=== PATIENT | female | born 1925 | race Caucasian/White ===

== ENCOUNTER → 2017-03-01 | Outpatient (CLI) | payer MEDICARE, MEDICAID, OTHER ==
[2017-02-11 12:21] VITALS: BMI 30.6
[~2017-03-01] MED LIST: ACE325 PO; ACET-1966 PO; ALEN70TA43 PO; ASPI-1471 PO; ASPI-715 PO; ATOR10TA65 PO; AZIT-18 PO; BLOO-1318 MC; CAPT50TA PO; CARB-1 PO; CARB-71 PO; CEP500 PO; CEPH-13 PO; CEPH500C24 PO; CEPH500T7 PO; CHOL100052 PO; CHOL100059 PO; DEXT237L; DOCU-202 PO; ENOX120D5 SQ; FUR80 PO; FURO-47 PO; FURO80TA70 PO; GUAI118L70 PO; IMI25 PO; INSU100I30 SQ; IRON1CAP52 PO; ISOS30TA54 PO; ISOS60TA42 PO; LACT-242 PO; LANC-1149 MC; LANI SC; LANI SQ; LANI SUBQ; LEV125 PO; LEVO-3 PO; LEVO-85 PO; LISI2.5T60 PO; LISI20TA29 PO; LISI5TAB25 PO; LOVA20TA99 PO; MEC25 PO; METF-420 PO; METO100T20 PO; METO50TA19 PO; MINE5OIN OU; MOM PO; NEED-931 MC; NITR0.4T3 SL; NITR50CA35 PO; NITR50CA39 PO; NYST15CR32 TP; ONDA4TAB PO; ONDA8TAB94 PO; OXY5 PO; OXYC-373 PO; OXYC-865 PO; OXYGEN INH; OXYGENHOME INH; PER PO; POLY119P24 PO; POLY17PO25 PO; POTA-23 PO; POTA25TA6 PO; RAN150 PO; RANI150T PO; SIMV10TA98 PO; SPIR25TA78 PO; VIT D; WAR5 PO; WARF4TAB46 PO; [UNRECOGNIZED DRUG - CODE] PO; [UNRECOGNIZED DRUG - CODE] PO
[2017-03-01 15:51] LABS: PLATELET COUNT, AUTOMATED 136 K/uL (150-450)
== END ==
LOC: LAB 15:37
PROVIDERS: ATTEND Emergency Medicine
DX: I50.9 Heart failure, unspecified (principal)
CPT/HCPCS: 36415; 82310; 82374; 82435; 82565; 82947; 83880; 84132; 84295; 84520; 85025

== ENCOUNTER 2017-03-04 19:58 | Inpatient (IN) | payer MEDICARE, MEDICAID, OTHER ==
[~2017-03-04] VITALS: Ht 165.1 cm; Wt 85.3 kg
[~2017-03-04 19:58] MED LIST changes: -LACT237L63 PO
--- NOTE | 2017-03-04 20:13 | ER Report ---
History and Physical Time Seen By MD: 20:12 Hx. of Stated Complaint: PT NOTICED TO HAVE LABORED BREATHING AT ED [facility]. PT COMPLAINS OF PAIN IN LEFT SHOULDER. HPI/ROS CHIEF COMPLAINT: trouble with breathing HISTORY OF PRESENT ILLNESS: This is an 89 year old female. She was sent to the ER from the assisted living [place], [facility]. Nursing staff reported that the patient is having some tachypnea. Reported a respiratory rate of 38. Normal saturations on her 2 liters of oxygen by nasal canula. They also reported decreased breath sounds in the right base of the lungs and left side was clear. They reported that her lasix was recently increased by her primary care provider , Dr. Smith. She has no fever. She has been a little bit confused off and on today, more so than normal for her. On arrival from EMS, she does not think she is short of breath. She does have some left shoulder pain, but historically, she always complains of pain in the left shoulder. She says she has some aches in her legs bilaterally. She denies other pain. She is not nauseated. REVIEW OF SYSTEMS: Otherwise unable to obtain due to regular mental status. Allergies: Coded Allergies: sulfamethoxazole (Verified Allergy, Mild, 03/04/17) trimethoprim (Verified Allergy, Mild, 03/04/17) Home Meds Active Scripts Lisinopril (LISINOPRIL) 5 Mg Tablet, 5 MG PO QDAY, #90 TAB 3 Refills Prov:SARAH SMITH MD 03/01/17 Furosemide (FUROSEMIDE) 40 Mg Tablet, 1 TAB PO BID, #180 TAB 0 Refills 80 mg tab po QAM 40 mg tab po at noon daily. Prov:SARAH SMITH MD 02/25/17 Isosorbide Mononitrate (ISOSORBIDE MONONITRATE ER) 60 Mg Tab.er.24h, 1 TAB PO DAILY, #90 TAB 0 Refills Prov:SARAH SMITH MD 02/23/17 Metoprolol Succinate (METOPROLOL SUCCINATE) 100 Mg Tab.er.24h, 1 TAB PO BID, # 180 TAB 1 Refill Prov:SARAH SMITH MD 02/14/17 Atorvastatin Calcium (ATORVASTATIN CALCIUM) 10 Mg Tablet, 1 TAB PO HS, #90 TAB 4 Refills Prov:SARAH SMITH MD 02/14/17 Levodopa/Carbidopa (CARBIDOPA-LEVODOPA 25-250 TAB) 1 Each Tab, 1 TAB PO TID, # 90 TAB 5 Refills Prov:SARAH SMITH MD 02/14/17 Alendronate Sodium (FOSAMAX) 70 Mg Tablet, 70 MG PO QWK, #12 TAB 4 Refills Prov:SARAH SMITH MD 10/15/16 Levothyroxine Sodium (LEVOTHYROXINE SODIUM) 100 Mcg Tablet, 1 TAB PO QDAY, #90 TAB 3 Refills Prov:SARAH SMITH MD 04/12/16 Aspirin (ASPIR 81) 81 Mg Tablet.dr, 81 MG PO QDAY, #90 TAB 4 Refills Prov:SARAH SMITH MD 03/31/16 Lancets (ONE TOUCH LANCETS) 1 Each Each, 1 EA MC 5XD, #100 12 Refills Test Glucose before Fasting each morning, before meals and HS. Length of need:99 months Prov:SARAH SMITH MD 03/15/16 [place], Insulin Disposable (PEN NEEDLES) 1 Each Dis.needle, 1 EACH MC QAM, #1 12 Refills Prov:SARAH SMITH MD 03/15/16 Blood Sugar Diagnostic (ONE TOUCH ULTRA TEST STRIPS) 1 Each Strip, 1 EACH MC 5XD , #100 STRIP 12 Refills Test Glucose before Fasting each morning, before meals and HS. Length of need:99 months Prov:SARAH SMITH MD 03/15/16 Cholecalciferol (Vitamin D3) (VITAMIN D3) 1,000 Unit Capsule, 1 CAP PO QDAY, # 90 CAPSULE 4 Refills Prov:SARAH SMITH MD 02/27/16 Lactose-Free Food (Ensure High Protein) 237 Ml Liquid, 1 BOTTLE PO TID for 30 Days, ML Prov:SARHA SMITH MD 05/22/15 Reported Medications Mineral Oil/Petrolatum,White (Retaine Pm Eye Ointment) 5 Gm Oint...g., 1 LIZ OU HS 02/10/17 Guaifenesin/Dextromethorphan (Robafen Dm Cgh-Chest Kg Liq) 100 Mg-10 Mg/5 Ml Liquid, 5 ML PO Q4-6H for cough 02/10/17 Polyethylene Glycol 3350 (MIRALAX) 17 Gm Powd.pack, 17 GM PO DAILY, PKT 02/10/17 Insulin Glargine (LANTUS) 100 Unit/Ml Soln, 21 UNIT SUBQ DAILY, ML 02/10/17 Oxygen (OXYGEN) Inha, 2 L INH, L 12/12/14 Magnesium Hydroxide (MILK OF MAGNESIA) 400 Mg/5 Ml Oral.susp, 400 MG PO PRN 10/05/13 Acetaminophen (TYLENOL) 325 Mg Tablet, 325-650 MG PO Q4H Y for PAIN 05/30/13 Reviewed Nurses Notes: Yes Hx Smoking: No Smoking Status: Never Smoker Exposure to Second Hand Smoke?: No Hx Substance Use Disorder: No Hx Alcohol Use: No Constitutional Vital Sign - Last 24 Hours 03/04/17 03/04/17 03/04/17 03/04/17 19:59 20:03 20:28 20:56 Temp 98.3 Pulse 66 60 Resp 36 B/P (MAP) 113/63 (80) 113/63 132/81 (98) Pulse Ox 98 97 O2 Delivery Nasal Cannula 03/04/17 03/04/17 03/04/17 03/04/17 20:58 21:00 21:28 21:30 Pulse 60 60 B/P (MAP) 139/75 (96) 129/67 (87) Pulse Ox 98 98 03/04/17 03/04/17 03/04/17 03/04/17 21:35 21:41 22:00 22:05 Pulse 60 60 B/P (MAP) 131/75 (93) Pulse Ox 99 97 O2 Flow Rate 2.0 03/04/17 03/04/17 03/04/17 03/04/17 22:10 22:30 22:40 23:00 Pulse 60 60 B/P (MAP) 148/66 (93) 146/91 (109) Pulse Ox 98 97 03/04/17 23:10 Pulse 60 Pulse Ox 99 Physical Exam General Appearance: The patient is alert. No acute distress. Eyes: Pupils are equal, round. Reactive to light. No pallor, injection or icterus. ENT: Mucous membranes are moist. Normal oral mucosa. Posterior oropharynx is normal. Normal tympanic membranes and canals other than some cerumen. Neck: Supple and non tender. Respiratory: Lungs are clear to auscultation. Cardiovascular: Regular rate and rhythm. She does have a holosystolic murmur, slight click, no gallops or rubs. Normal capillary refill. Bilateral lower extremity edema. Gastrointestinal: Abdomen is soft and non tender. Nondistended. Normal active bowel sounds. Neurological: Alert, oriented to person. Moving all extremities. Skin: Warm and dry. Musculoskeletal: Extremities are nontender. DIFFERENTIAL DIAGNOSIS: After history and physical exam, differential diagnosis was considered for a patient with tachypnea, but no visible signs of shortness of breath and no chest pain. Look at possible loose including pulmonary embolism , pneumonia, and her chronic heart failure Medical Decision Making Data Points Result Diagram: 03/04/17205403/04/172054 Laboratory Hematology Test 03/04/17 20:55 Red Blood Count 5.67 M/uL (4.17-5.56) Mean Corpuscular Volume 77.3 fL (80.0-96.0) Mean Corpuscular Hemoglobin 24.6 pg (26.0-33.0) Mean Corpuscular Hemoglobin Concent 31.8 g/dL (32.0-36.0) Red Cell Distribution Width 16.1 % (11.5-14.5) Mean Platelet Volume 9.4 fL (7.2-11.1) Neutrophils (%) (Auto) 77.4 % (39.4-72.5) Lymphocytes (%) (Auto) 10.4 % (17.6-49.6) Monocytes (%) (Auto) 9.2 % (4.1-12.4) Eosinophils (%) (Auto) 2.3 % (0.4-6.7) Basophils (%) (Auto) 0.7 % (0.3-1.4) Nucleated RBC Relative Count (auto) 0.0 /100WBC Neutrophils # (Auto) 6.1 K/uL (2.0-7.4) Lymphocytes # (Auto) 0.8 K/uL (1.3-3.6) Monocytes # (Auto) 0.7 K/uL (0.3-1.0) Eosinophils # (Auto) 0.2 K/uL (0.0-0.5) Basophils # (Auto) 0.1 K/uL (0.0-0.1) Nucleated RBC Absolute Count (auto) 0.00 K/uL D-Dimer Quantitative (PE/DVT) 1.73 ug/ml (0-0.50) Sodium Level 135 mmol/L (137-145) Potassium Level 4.3 mmol/L (3.5-5.0) Chloride Level 93 mmol/L (98-107) Carbon Dioxide Level 32 mmol/L (22-31) Blood Urea Nitrogen 45 mg/dl (7-18) Creatinine 1.30 mg/dl (0.52-1.04) Glomerular Filtration Rate Calc 38.6 Random Glucose 154 mg/dl (75-110) Lactate 2.0 mmol/L (0.7-2.1) Calcium Level 8.9 mg/dl (8.4-10.2) Total Bilirubin 0.7 mg/dl (0.2-1.3) Aspartate Amino Transf (AST/SGOT) 26 U/L (0-35) Alanine Aminotransferase (ALT/SGPT) 20 U/L (0-56) Alkaline Phosphatase 59 U/L (0-126) B-Type Natriuretic Peptide 2230 pg/ml (0-100) Total Protein 5.8 gm/dl (6.3-8.2) Albumin 3.0 g/dl (3.5-5.0) Influenza Type A Antigen Negative (NEGATIVE) Influenza Type B Antigen Negative (NEGATIVE) Chemistry Test 03/04/17 20:55 White Blood Count 7.8 k/uL (4.5-11.0) Red Blood Count 5.67 M/uL (4.17-5.56) Hemoglobin 14.0 g/dL (12.0-16.0) Hematocrit 43.9 % (34.0-47.0) Mean Corpuscular Volume 77.3 fL (80.0-96.0) Mean Corpuscular Hemoglobin 24.6 pg (26.0-33.0) Mean Corpuscular Hemoglobin Concent 31.8 g/dL (32.0-36.0) Red Cell Distribution Width 16.1 % (11.5-14.5) Platelet Count 147 K/uL (150-450) Mean Platelet Volume 9.4 fL (7.2-11.1) Neutrophils (%) (Auto) 77.4 % (39.4-72.5) Lymphocytes (%) (Auto) 10.4 % (17.6-49.6) Monocytes (%) (Auto) 9.2 % (4.1-12.4) Eosinophils (%) (Auto) 2.3 % (0.4-6.7) Basophils (%) (Auto) 0.7 % (0.3-1.4) Nucleated RBC Relative Count (auto) 0.0 /100WBC Neutrophils # (Auto) 6.1 K/uL (2.0-7.4) Lymphocytes # (Auto) 0.8 K/uL (1.3-3.6) Monocytes # (Auto) 0.7 K/uL (0.3-1.0) Eosinophils # (Auto) 0.2 K/uL (0.0-0.5) Basophils # (Auto) 0.1 K/uL (0.0-0.1) Nucleated RBC Absolute Count (auto) 0.00 K/uL D-Dimer Quantitative (PE/DVT) 1.73 ug/ml (0-0.50) Glomerular Filtration Rate Calc 38.6 Lactate 2.0 mmol/L (0.7-2.1) Calcium Level 8.9 mg/dl (8.4-10.2) Total Bilirubin 0.7 mg/dl (0.2-1.3) Aspartate Amino Transf (AST/SGOT) 26 U/L (0-35) Alanine Aminotransferase (ALT/SGPT) 20 U/L (0-56) Alkaline Phosphatase 59 U/L (0-126) B-Type Natriuretic Peptide 2230 pg/ml (0-100) Total Protein 5.8 gm/dl (6.3-8.2) Albumin 3.0 g/dl (3.5-5.0) Influenza Type A Antigen Negative (NEGATIVE) Influenza Type B Antigen Negative (NEGATIVE) Coagulation Test 03/04/17 20:55 D-Dimer Quantitative (PE/DVT) 1.73 ug/ml EKG/Imaging Imaging SINGLE AP RADIOGRAPH OF THE CHEST 03/04/2017 8:20 PM. INDICATION: tachypnea COMPARISON: 02/11/2017. FINDINGS: Persistent moderate volume right and small left pleural effusions with bibasilar consolidation/atelectasis, not significantly changed. No pleural effusion or pneumothorax. Heart size is likely unchanged. Unchanged dual- chamber pacer. IMPRESSION: No significant change. Report Dictated By: Efrain Rodríguez MD at 03/04/2017 10:02 PM ED Course/Re-evaluation Clinical Indication for ER IV: IV Access ED Course Labs show a mild increase in her BNP. No leukocytosis. Chronic kidney disease slightly worsened. She has had increased Lasix recently by primary care for edema and fluid retention, but has not seemed to help with no change in weight. D-dimer is elevated, but always so and she does have the renal problem and I think less likely that this is a PE. Starting anticoagulation for her would be problematic at her age and risk factors. Discussed with Dr. Thurston and admitted for what appears to be a heart failure exacerbation. Decision to Disposition Date: Mar 04, 2017 Decision to Disposition Time: 22:25 Depart Departure Latest Vital Signs Vital Signs Date Time Temp Pulse Resp B/P (MAP) Pulse Ox O2 Delivery O2 Flow Rate FiO2 03/04/17 23:10 60 99 03/04/17 23:00 146/91 (109) 03/04/17 21:41 2.0 03/04/17 20:03 98.3 36 Nasal Cannula Impression: Primary Impression: Acute systolic CHF (congestive heart failure) Condition: Condition Unchanged Disposition: Admitted from ER Referrals: SARAH SMITH MD (PCP) ESTEBAN MATTHEW MD Mar 04, 2017 20:13
[2017-03-04 21:10] LABS: PLATELET COUNT, AUTOMATED 147 K/uL (150-450)
--- NOTE | 2017-03-04 22:09 | RADIOLOGY IMAGING REPORT ---
FACILITY: [facility] - [place], [place] PATIENT NAME: Olya Menchaca : 1925 MR: [id number] V: [id number] EXAM DATE: ORDERING PHYSICIAN: ESTEBAN MATTHEW TECHNOLOGIST: Location[place] [facility] [place] Patient: Olya Menchaca : 1925 Visit/Account:[id number] Date of Sevice: 03/04/2017 SINGLE AP RADIOGRAPH OF THE CHEST 03/04/2017 8:20 PM. INDICATION: tachypnea COMPARISON: 02/11/2017. FINDINGS: Persistent moderate volume right and small left pleural effusions with bibasilar consolidation/atelec tasis, not significantly changed. No pleural effusion or pneumothorax. Heart size is likely unchang ed. Unchanged dual-chamber pacer. IMPRESSION: No significant change. Report Dictated By: Efrain Rodríguez MD at 03/04/2017 10:02 PM Report E-Signed By: Efrain Rodríguez MD at 03/04/2017 10:05 PM WSN:[id number]
[2017-03-04 23:46] VITALS: BP 136/114
[2017-03-05] MEDS ORDERED: FUROSEMIDE 40 MG/4 ML VIAL IVP ONE (00:10)
[2017-03-05] MEDS ORDERED: MAGNESIUM HYDROXIDE* 30ML UDCP PO PRN (00:20)
[2017-03-05] MEDS ORDERED: BISACODYL 10 MG SUPP PR PRN (00:20)
--- NOTE | 2017-03-05 00:40 | History & Physical ---
History of Present Illness Chief Complaint Shortness of breath History of Present Illness This patient was brought to the emergency room by assisted living staff secondary to concerns that her breathing was more labored. They also noted increased edema in her legs. She does have chronic heart failure and her diuretics were recently increased. However, she has actually been gaining weight since her last admission. History Problems: (1) CAD (coronary artery disease) (2) Hyperlipidemia Status: Chronic (3) Hypothyroidism Status: Chronic (4) Hypertension, benign Status: Chronic (5) Type II diabetes mellitus Status: Chronic (6) Chronic systolic CHF (congestive heart failure), NYHA class 4 Status: Chronic (7) Paroxysmal atrial fibrillation Status: Chronic (8) Mitral regurgitation Status: Chronic (9) Parkinson disease Status: Chronic (10) Angina pectoris Status: Chronic (11) Non-ST elevation (NSTEMI) myocardial infarction Status: Resolved (12) Pulmonary embolism Status: Chronic (13) Melanoma of left upper arm Status: Resolved (14) Pacemaker Status: Chronic Home Meds Active Scripts Lisinopril (LISINOPRIL) 5 Mg Tablet, 5 MG PO QDAY, #90 TAB 3 Refills Prov:SARAH WILSON MD 03/01/17 Furosemide (FUROSEMIDE) 40 Mg Tablet, 1 TAB PO BID, #180 TAB 0 Refills 80 mg tab po QAM 40 mg tab po at noon daily. Prov:SARAH WILSON MD 02/25/17 Isosorbide Mononitrate (ISOSORBIDE MONONITRATE ER) 60 Mg Tab.er.24h, 1 TAB PO DAILY, #90 TAB 0 Refills Prov:SARAH WILSON MD 02/23/17 Metoprolol Succinate (METOPROLOL SUCCINATE) 100 Mg Tab.er.24h, 1 TAB PO BID, # 180 TAB 1 Refill Prov:SARAH WILSON MD 02/14/17 Atorvastatin Calcium (ATORVASTATIN CALCIUM) 10 Mg Tablet, 1 TAB PO HS, #90 TAB 4 Refills Prov:SARAH WILSON MD 02/14/17 Levodopa/Carbidopa (CARBIDOPA-LEVODOPA 25-250 TAB) 1 Each Tab, 1 TAB PO TID, # 90 TAB 5 Refills Prov:SARAH WILSON MD 02/14/17 Alendronate Sodium (FOSAMAX) 70 Mg Tablet, 70 MG PO QWK, #12 TAB 4 Refills Prov:SARAH WILSON MD 10/15/16 Levothyroxine Sodium (LEVOTHYROXINE SODIUM) 100 Mcg Tablet, 1 TAB PO QDAY, #90 TAB 3 Refills Prov:SARAH WILSON MD 04/12/16 Aspirin (ASPIR 81) 81 Mg Tablet.dr, 81 MG PO QDAY, #90 TAB 4 Refills Prov:SARAH WILSON MD 03/31/16 Lancets (ONE TOUCH LANCETS) 1 Each Each, 1 EA MC 5XD, #100 12 Refills Test Glucose before Fasting each morning, before meals and HS. Length of need:99 months Prov:SARAH WILSON MD 03/15/16 [place], Insulin Disposable (PEN NEEDLES) 1 Each Dis.needle, 1 EACH MC QAM, #1 12 Refills Prov:SARAH WILSON MD 03/15/16 Blood Sugar Diagnostic (ONE TOUCH ULTRA TEST STRIPS) 1 Each Strip, 1 EACH MC 5XD , #100 STRIP 12 Refills Test Glucose before Fasting each morning, before meals and HS. Length of need:99 months Prov:SARAH WILSON MD 03/15/16 Cholecalciferol (Vitamin D3) (VITAMIN D3) 1,000 Unit Capsule, 1 CAP PO QDAY, # 90 CAPSULE 4 Refills Prov:SARAH WILSON MD 02/27/16 Lactose-Free Food (Ensure High Protein) 237 Ml Liquid, 1 BOTTLE PO TID for 30 Days, ML Prov:SARAH WILSON MD 05/22/15 Reported Medications Mineral Oil/Petrolatum,White (Retaine Pm Eye Ointment) 5 Gm Oint...g., 1 LIZ OU HS 02/10/17 Guaifenesin/Dextromethorphan (Robafen Dm Cgh-Chest Kg Liq) 100 Mg-10 Mg/5 Ml Liquid, 5 ML PO Q4-6H for cough 02/10/17 Polyethylene Glycol 3350 (MIRALAX) 17 Gm Powd.pack, 17 GM PO DAILY, PKT 02/10/17 Insulin Glargine (LANTUS) 100 Unit/Ml Soln, 21 UNIT SUBQ DAILY, ML 02/10/17 Oxygen (OXYGEN) Inha, 2 L INH, L 12/12/14 Magnesium Hydroxide (MILK OF MAGNESIA) 400 Mg/5 Ml Oral.susp, 400 MG PO PRN 10/05/13 Acetaminophen (TYLENOL) 325 Mg Tablet, 325-650 MG PO Q4H Y for PAIN 05/30/13 Allergies: Coded Allergies: sulfamethoxazole (Verified Allergy, Mild, 03/04/17) trimethoprim (Verified Allergy, Mild, 03/04/17) Patient History: FH: breast cancer MOTHER, , Age:80 BROTHER OR SISTER FHx: leukemia FATHER, , Age:80 Hx Smoking: No Smoking Status: Never Smoker Exposure to Second Hand Smoke?: No Caffeine/Cups Per Day: NONE Hx Alcohol Use: No Hx Substance Use Disorder: No Review of Systems All Systems Reviewed/Normal: Yes, Except as Noted Respiratory: Shortness of Breath Exam Vital Signs Vital Signs Date Time Temp Pulse Resp B/P (MAP) Pulse Ox O2 Delivery O2 Flow Rate FiO2 03/04/17 23:46 97.6 60 24 136/114 (121) 97 Nasal Cannula 2.0 Neuro: No Gross deficits Eyes: PERRLA Cardiovascular: Regular Rate and Rhythm, Other (JVD present.) Respiratory: Other (Bilateral pleural effusions.) GI: Abd Soft and Non-Tender Extremities: Edema Integumentary: No Cyanosis Medical Decision Making Data Points Result Diagram: 03/04/17205403/04/172054 Item Value Date Time B-Type Natriuretic Peptide 2230 pg/ml H 03/04/172054 EKG / Imaging Imaging Chest x-ray reviewed. Assessment and Plan Problems: (1) Acute systolic CHF (congestive heart failure) Assessment & Plan: She did present with increased shortness of breath and edema. Her diuretics were recently increased, but she has not been responding to this. Her last documented ejection fraction was 29% (01/2017). We will treat her with a dose of IV Lasix this evening. Daily weights have been ordered. She is already on chronic treatment with lisinopril, metoprolol, and oral Lasix. (2) Fecal impaction Status: Acute Assessment & Plan: She is describing symptoms consistent with constipation and impaction. We have started a bowel regime. (3) CAD (coronary artery disease) Assessment & Plan: She is on chronic treatment with aspirin and isosorbide. (4) Hypothyroidism Status: Chronic Assessment & Plan: She is on chronic treatment with Synthroid. (5) Type II diabetes mellitus Status: Chronic Assessment & Plan: She is on chronic treatment with Lantus. We will also cover her with sliding scale level #2. (6) Parkinson disease Status: Chronic Assessment & Plan: She is on chronic treatment with Sinemet. (7) Paroxysmal atrial fibrillation Status: Chronic Assessment & Plan: She is on chronic treatment with aspirin and metoprolol. Copies to: SARAH WILSON MD Venous Thromboembolism Antithrombotics Is Pt On Any Antithrombotics?: No Heart Failure NYHA Class: IV Is Patient on MALLORIE Inhibitor?: No Is Patient on Beta Corbin?: Yes Exam Sepsis Risk: No Definite Risk EMMANUEL DERAS DO Mar 05, 2017 00:39
[2017-03-05 04:02] VITALS: BP 119/57
[2017-03-05] MEDS: LEVOTHYROXINE SOD 0.1 MG TAB PO SCH (05:30)
[2017-03-05 07:36] VITALS: BP 127/72
[2017-03-05] MEDS ORDERED: INSULIN GLARGINE 100 U/ML 3 ML PEN SUBQ SCH (09:00)
[2017-03-05] MEDS ORDERED: FUROSEMIDE 40 MG TAB PO SCH (09:00)
[2017-03-05] MEDS ORDERED: INFLUENZA VIRUS VAC 0.5 ML SYR IM ONLY ONE (09:00)
[2017-03-05] MEDS: ASPIRIN 81 MG ENTERIC COATED PO SCH (09:29)
[2017-03-05] MEDS: METOPROLOL SUCC XL 50 MG TABCR 50 MG TAB.ER.24H PO SCH ×2 (09:29→20:47)
[2017-03-05] MEDS: ISOSORBIDE MONONITR 30MG TABCR PO SCH (09:29)
[2017-03-05] MEDS: INSULIN GLARGINE 100 U/ML 3 ML PEN SUBQ SCH (09:30)
[2017-03-05] MEDS: LISINOPRIL 5 MG TAB PO SCH (09:30)
[2017-03-05] MEDS: DOCUSATE SODIUM 100 MG CAP PO SCH ×2 (09:30→20:47)
[2017-03-05] MEDS: ENOXAPARIN 30 MG/0.3 ML SYR SC SCH (09:30)
[2017-03-05] MEDS: POLYETHYLENE GLYCOL 17 GM PKT PO SCH (09:30)
[2017-03-05 09:35] LABS: PLATELET COUNT, AUTOMATED 142 K/uL (150-450)
[2017-03-05] MEDS: CARBIDOPA/LEVODOPA 25/250 TAB PO SCH ×3 (09:42→20:48)
[2017-03-05 10:53] VITALS: Ht 165.1 cm; Wt 85.3 kg
[2017-03-05 10:55] VITALS: BP 127/62
--- NOTE | 2017-03-05 12:41 | Hospitalist Progress Note ---
Subjective Progress Notes Subjective The patient states she is feeling better this am after receiving IV Lasix last evening. Physical Exam Vital Signs Date Time Temp Pulse Resp B/P (MAP) Pulse Ox O2 Delivery O2 Flow Rate FiO2 03/05/17 10:55 97.8 67 18 127/62 (83) 97 Nasal Cannula 1.0 Intake and Output 03/06/17 07:01 Intake Total 480 ml Output Total 400 ml Balance 80 ml Intake Oral 480 ml Output Urine Total 400 ml General Appearance: Alert, Awake, No Acute Distress, Afebrile Neuro: Other (Short term memory is poor at times.) Eyes: PERRLA Cardiovascular: Regular Rate and Rhythm Respiratory: Other (Very minimal fine crackles, L base.) GI: Soft and Non-Tender Extremities: Warm, Perfused, Other ( Trace to 1+ edema, both LE.) Integumentary: Skin Intact without Lesion / Mass Psych: Appropriate Mood & Affect Result Diagram: 03/05/1792103/05/17921 Assessment and Plan Problems: (1) Acute systolic CHF (congestive heart failure) Assessment & Plan: She did present with increased shortness of breath and edema. Her diuretics were recently increased, but she has not been responding to this. Her last documented ejection fraction was 29% (01/2017). She received a dose of IV Lasix last evening with improvement of her symptoms. Daily weights have been ordered and her weight is down this am. She is already on chronic treatment with lisinopril, metoprolol, and oral Lasix. Will continue her oral Lasix dose today, 80mg po q am and 40mg po in the afternoon. (2) Fecal impaction Status: Acute Assessment & Plan: She is describing symptoms consistent with constipation and impaction. We have started a bowel regimen. (3) CAD (coronary artery disease) Assessment & Plan: She is on chronic treatment with aspirin, metoprolol and isosorbide. (4) Hypothyroidism Status: Chronic Assessment & Plan: She is on chronic treatment with Synthroid. (5) Type II diabetes mellitus Status: Chronic Assessment & Plan: She is on chronic treatment with Lantus. We will also cover her with sliding scale level #2. (6) Parkinson disease Status: Chronic Assessment & Plan: She is on chronic treatment with Sinemet. (7) Paroxysmal atrial fibrillation Status: Chronic Assessment & Plan: She is on chronic treatment with aspirin and metoprolol. Time Spent on Plan of Care: < 30 min Heart Failure NYHA Class: IV Is Patient on MALLORIE Inhibitor?: No Is Patient on Beta Corbin?: Yes Exam Sepsis Risk: No Definite Risk JOVON ROACH MD Mar 05, 2017 12:41
[2017-03-05] MEDS: FUROSEMIDE 40 MG TAB PO SCH (13:54)
[2017-03-05 15:14] VITALS: BP 118/64
[2017-03-05 19:35] VITALS: BP 107/56
[2017-03-05] MEDS: ATORVASTATIN 10 MG TAB PO SCH (20:47)
[2017-03-05 23:07] VITALS: BP 110/60
[2017-03-06 04:57] VITALS: BP 131/62
[2017-03-06 05:56] LABS: PLATELET COUNT, AUTOMATED 126 K/uL (150-450)
[2017-03-06] MEDS: LEVOTHYROXINE SOD 0.1 MG TAB PO SCH (07:25)
[2017-03-06 07:35] VITALS: BP 118/98
[2017-03-06] MEDS ORDERED: FUROSEMIDE 80 MG TAB PO SCH (09:00)
[2017-03-06] MEDS: ENOXAPARIN 30 MG/0.3 ML SYR SC SCH (09:00)
[2017-03-06] MEDS: DOCUSATE SODIUM 100 MG CAP PO SCH ×2 (09:01→21:13)
[2017-03-06] MEDS: ISOSORBIDE MONONITR 30MG TABCR PO SCH (09:01)
[2017-03-06] MEDS: LISINOPRIL 5 MG TAB PO SCH (09:01)
[2017-03-06] MEDS: POLYETHYLENE GLYCOL 17 GM PKT PO SCH (09:01)
[2017-03-06] MEDS: ASPIRIN 81 MG ENTERIC COATED PO SCH (09:01)
[2017-03-06] MEDS: CARBIDOPA/LEVODOPA 25/250 TAB PO SCH ×3 (09:01→21:13)
[2017-03-06] MEDS: INSULIN GLARGINE 100 U/ML 3 ML PEN SUBQ SCH (09:01)
[2017-03-06] MEDS: METOPROLOL SUCC XL 50 MG TABCR 50 MG TAB.ER.24H PO SCH ×2 (09:01→21:14)
[2017-03-06] MEDS: NYSTATIN 100,000 U/GM PWD 15GM TP SCH ×2 (09:39→21:13)
[2017-03-06 11:43] VITALS: BP 119/64
--- NOTE | 2017-03-06 12:36 | Hospitalist Progress Note ---
Subjective Progress Notes Subjective She reports feeling weak. Some dyspnea. Physical Exam Vital Signs Date Time Temp Pulse Resp B/P (MAP) Pulse Ox O2 Delivery O2 Flow Rate FiO2 03/06/17 11:43 97.8 61 26 119/64 (82) 95 Nasal Cannula 2.0 Intake and Output 03/07/17 07:01 Intake Total 250 ml Balance 250 ml Intake Oral 250 ml # Bowel Movements 2 General Appearance: Alert, Awake Cardiovascular: Regular Rate and Rhythm Respiratory: Other (diminished breath sounds at right base) Chest: Other (pacemaker left upper chest) GI: Soft and Non-Tender Extremities: Warm, Perfused Result Diagram: 03/06/17 0540 03/06/17 0540 Assessment and Plan Problems: (1) Acute systolic CHF (congestive heart failure) Assessment & Plan: She did present with increased shortness of breath and edema. Her diuretics were recently increased, but she has not been responding to this. Her last documented ejection fraction was 29% (01/2017). She received a dose of IV Lasix early yesterday with improvement of her symptoms. Daily weights have been ordered and her weight is down. She is already on chronic treatment with lisinopril, metoprolol, and oral Lasix. We transitioned to her oral Lasix dose yesterday (80mg po qam and 40mg po in the afternoon). She hash had a fairly large chronic right-sided pleural effusion. Will re-check CXR. Question if she might improve with a therapeutic thoracentesis. (2) Fecal impaction Status: Acute Assessment & Plan: She has had results with laxatives. We have started a bowel regimen. (3) CAD (coronary artery disease) Assessment & Plan: She is on chronic treatment with aspirin, metoprolol and isosorbide. (4) Hypothyroidism Status: Chronic Assessment & Plan: She is on chronic treatment with Synthroid. TSH was normal at 2.05 on 02/01/17. (5) Type II diabetes mellitus Status: Chronic Assessment & Plan: She is on chronic treatment with Lantus. We will also cover her with sliding scale level #2. (6) Parkinson disease Status: Chronic Assessment & Plan: She is on chronic treatment with Sinemet. (7) Paroxysmal atrial fibrillation Status: Chronic Assessment & Plan: She has ventricular pacemaker and is essentially fully paced. She is on chronic treatment with aspirin and metoprolol. Heart Failure NYHA Class: IV Is Patient on MALLORIE Inhibitor?: No Is Patient on Beta Corbin?: Yes Exam Sepsis Risk: No Definite Risk CHE ROACH MD Mar 06, 2017 12:36
[2017-03-06] MEDS ORDERED: LACT237L63 PO (13:08)
--- NOTE | 2017-03-06 13:15 | RADIOLOGY IMAGING REPORT ---
FACILITY: [facility] - [place] PATIENT NAME: Olya Menchaca : 1925 MR: [id number] V: [id number] EXAM DATE: ORDERING PHYSICIAN: CHE ROACH TECHNOLOGIST: Location: [facility] Patient: Olya Menchaca : 1925 Visit/Account:[id number] Date of Sevice: 03/06/2017 CHEST SINGLE AP Indication: Right pleural effusion, CHF.. Comparison: 03/04/2017. Findings: Cardiac silhouette remains mildly enlarged but unchanged. Left subclavian pacemakers unchanged. Reces s silhouette is within normal limits. The pulmonary vessels are mildly prominent bilaterally. There is persistent small moderate right pleural effusion with associated atelectasis. Minimal left p leural effusion is present. Minimal medial left basal atelectasis. Lungs are otherwise clear without pneumothorax No discrete nodule. Upper abdomen is unremarkable. No acute bony abnormality. IMPRESSION: 1. Persistent mild CHF with small moderate right pleural effusion and minimal left pleural effusion. Bibasilar atelectasis. Report Dictated By: Giovany Rice at 03/06/2017 1:10 PM Report E-Signed By: Giovany Rice at 03/06/2017 1:12 PM WSN:[id number]
[2017-03-06] MEDS: FUROSEMIDE 40 MG TAB PO SCH (13:57)
[2017-03-06] MEDS ORDERED: LIDOCAINE 2% MDV 400MG/20ML VL ONE (14:21)
[2017-03-06 14:42] VITALS: BP 93/58
--- NOTE | 2017-03-06 14:48 | Procedure Note ---
Thoracentesis Procedure Note Reason for Thoracentesis: Pleural Effusion Consent Signed: Yes Thoracentesis Location: Right Lung U/S Guided Thoracentesis: Yes Blood Loss: Minimal Complications: None (none apparent) Anesthesia Used: Other (2% lidocaine 3cc) CC's of Anesthesia: 3 Amount of Fluid: 1975 Fluid Characteristics: Clear (straw colored) Post Procedure Xray Ordered: Yes Lab Analysis Ordered: Yes CHE ROACH MD Mar 06, 2017 14:48
--- NOTE | 2017-03-06 15:18 | RADIOLOGY IMAGING REPORT ---
FACILITY: [facility] - [place] PATIENT NAME: Olya Menchaca : 1925 MR: [id number] V: [id number] EXAM DATE: ORDERING PHYSICIAN: CHE ROACH TECHNOLOGIST: Location: [facility] Patient: Olya Menchaca : 1925 Visit/Account:[id number] Date of Sevice: 03/06/2017 US GUIDANCE FOR THORA/PARA INDICATION: Right pleural effusion. Ultrasound for marking. COMPARISON: None available FINDINGS: Ultrasound evaluation of the right lung does show a prominent pleural effusion. This was marked for thoracentesis. IMPRESSION: Right pleural effusion marked for thoracentesis. Report Dictated By: Giovany Rice at 03/06/2017 3:14 PM Report E-Signed By: Giovany Rice at 03/06/2017 3:15 PM WSN:[id number]
--- NOTE | 2017-03-06 16:05 | RADIOLOGY IMAGING REPORT ---
FACILITY: [facility] [place] PATIENT NAME: Olya Menchaca : 1925 MR: [id number] V: [id number] EXAM DATE: ORDERING PHYSICIAN: CHE ROACH TECHNOLOGIST: [place] [facility] [place] Olya Menchaca : 1925 Visit/Account:[id number] Date of Sevice: 03/06/2017 CHEST SINGLE AP Indication: Right thoracentesis.. Comparison: Exam done earlier in the day. Findings: Cardiac silhouette remains mildly enlarged but unchanged. Mediastinal silhouette and pulmonary vessel s within normal limits. Left subclavian pacemakers in place and unchanged. There is no focal infiltrate or lobar consolidation. No appreciable right pneumothorax. No left pneumothorax. There is minimal residual right pleural flui d and small left pleural fluid visualized with minimal by basilar atelectasis. No discrete nodule. Upper abdomen is unremarkable. No acute bony abnormality. Degenerative change see n in the right shoulder. IMPRESSION: 1. No appreciable right pneumothorax. Small residual right pleural fluid. Small left pleural fluid. Mild bibasilar atelectasis. Report Dictated By: Giovany Rice at 03/06/2017 3:58 PM Report E-Signed By: Giovany Rice at 03/06/2017 4:01 PM WSN:[id number]
[2017-03-06] MEDS: INSULIN HUM LISPRO 100 UN/ML 3 ML VIAL SUBQ PRN (16:41)
[2017-03-06 19:30] VITALS: BP 102/39
[2017-03-06] MEDS: ATORVASTATIN 10 MG TAB PO SCH (21:14)
[2017-03-06 23:19] VITALS: BP 97/56
[2017-03-07 05:14] VITALS: BP 99/61
[2017-03-07] MEDS: LEVOTHYROXINE SOD 0.1 MG TAB PO SCH (05:34)
[2017-03-07 06:02] LABS: PLATELET COUNT, AUTOMATED 146 K/uL (150-450)
[2017-03-07 07:58] VITALS: BP 121/60
[2017-03-07] MEDS: METOPROLOL SUCC XL 50 MG TABCR 50 MG TAB.ER.24H PO SCH ×2 (08:54→20:47)
[2017-03-07] MEDS: ASPIRIN 81 MG ENTERIC COATED PO SCH (08:55)
[2017-03-07] MEDS: DOCUSATE SODIUM 100 MG CAP PO SCH ×2 (08:55→20:46)
[2017-03-07] MEDS: ISOSORBIDE MONONITR 30MG TABCR PO SCH (08:56)
[2017-03-07] MEDS: FUROSEMIDE 40 MG/4 ML VIAL IVP SCH ×2 (08:56→14:11)
[2017-03-07] MEDS: LISINOPRIL 5 MG TAB PO SCH (08:57)
[2017-03-07] MEDS: ENOXAPARIN 30 MG/0.3 ML SYR SC SCH (08:57)
[2017-03-07] MEDS: POLYETHYLENE GLYCOL 17 GM PKT PO SCH (08:57)
[2017-03-07] MEDS: INSULIN GLARGINE 100 U/ML 3 ML PEN SUBQ SCH (08:57)
[2017-03-07] MEDS: NYSTATIN 100,000 U/GM PWD 15GM TP SCH ×2 (08:58→20:47)
[2017-03-07] MEDS: CARBIDOPA/LEVODOPA 25/250 TAB PO SCH ×3 (08:58→20:46)
--- NOTE | 2017-03-07 10:30 | Hospitalist Progress Note ---
Subjective Progress Notes Subjective This patient was admitted for heart failure. She had no acute events overnight. Patient Complains of: Cardiovascular: No: Chest Pain Respiratory: No: Shortness of Breath Physical Exam Vital Signs Date Time Temp Pulse Resp B/P (MAP) Pulse Ox O2 Delivery O2 Flow Rate FiO2 03/07/17 07:58 97.8 66 16 121/60 (80) 96 Nasal Cannula 2.0 Intake and Output 03/08/17 07:01 Intake Total 0 ml Balance 0 ml Intake Oral 0 ml Cardiovascular: Regular Rate and Rhythm Respiratory: Clear to Auscultation Result Diagram: 03/07/1737 03/07/17536 Assessment and Plan Problems: (1) Acute systolic CHF (congestive heart failure) Assessment & Plan: She did present with increased shortness of breath and edema. Her diuretics were recently increased, but she has not been responding to this. Her last documented ejection fraction was 29% (01/2017). She was treated with IV Lasix and her oral Lasix was restarted. Her weight has not improved to baseline. We will place her back on scheduled IV Lasix. She is already on chronic treatment with lisinopril, metoprolol, and oral Lasix. She did have a thoracentesis performed yesterday. (2) Fecal impaction Status: Acute Assessment & Plan: She has had results with laxatives. She is on a bowel regimen. (3) CAD (coronary artery disease) Assessment & Plan: She is on chronic treatment with aspirin, metoprolol and isosorbide. (4) Hypothyroidism Status: Chronic Assessment & Plan: She is on chronic treatment with Synthroid. (5) Type II diabetes mellitus Status: Chronic Assessment & Plan: She is on chronic treatment with Lantus. We also are covering her with sliding scale level #2. (6) Parkinson disease Status: Chronic Assessment & Plan: She is on chronic treatment with Sinemet. (7) Paroxysmal atrial fibrillation Status: Chronic Assessment & Plan: She has ventricular pacemaker and is essentially fully paced. She is on chronic treatment with aspirin and metoprolol. Heart Failure NYHA Class: IV Is Patient on MALLORIE Inhibitor?: No Is Patient on Beta Corbin?: Yes Exam Sepsis Risk: No Definite Risk EMMANUEL DERAS DO Mar 07, 2017 10:30
--- NOTE | 2017-03-07 14:14 | Medical Nutrition Therapy ---
Nutritional Education Nutrition Education Topic: Low Na Diet, Congested Heart Failure Learning Barriers: Cognitive Learning Readiness: Little Interest Teaching Methods: Discussion, Handout Response to Teaching: Verbalize understanding, Reinforcement needed, Unable to comprehend Teaching Recipient: Patient Nutrition Counseling: Provided pt with CHF education. I discussed limiting sodium and fluids. Pt was confused and unable to understand most of the handout. I tried to simplify the information and stressed not using a salt shaker. Pt understood to not add additional salt to foods. Pt came from a senior care care center where she can have help making food choices. Nutrition Monitoring & Eval RD Patient Assessment Time: [address] Assessment Type: RD Education Patient Nutrition Acuity: 3-Mild Follow Up Date: Mar 09, 2017 Nutritional Comment: Assisted living resident admitted with CHF. Class I obesity with BMI of 31.4. Wt status to change as edmea resolves. Alb 3.0, BNP 2230, Glu 154. T2DM treated in hospital with Lantus 15 q day, Lispro SSI. Receiving Diabetic diet with no reports of intake. Provided 15 minutes of CHF education. WOLF ALONSO Mar 07, 2017 11:53
[2017-03-07] MEDS: INSULIN HUM LISPRO 100 UN/ML 3 ML VIAL SUBQ PRN ×2 (17:07→20:47)
[2017-03-07 18:57] VITALS: BP 108/50
[2017-03-07] MEDS: ATORVASTATIN 10 MG TAB PO SCH (20:46)
[2017-03-08 00:16] VITALS: BP 95/55
[2017-03-08] MEDS: LEVOTHYROXINE SOD 0.1 MG TAB PO SCH (06:15)
[2017-03-08 08:22] VITALS: BP 145/69
[2017-03-08] MEDS: POLYETHYLENE GLYCOL 17 GM PKT PO SCH (08:26)
[2017-03-08] MEDS: DOCUSATE SODIUM 100 MG CAP PO SCH ×2 (08:26→21:02)
[2017-03-08] MEDS: LISINOPRIL 5 MG TAB PO SCH (08:26)
[2017-03-08] MEDS: FUROSEMIDE 40 MG/4 ML VIAL IVP SCH ×2 (08:26→14:22)
[2017-03-08] MEDS: CARBIDOPA/LEVODOPA 25/250 TAB PO SCH ×3 (08:26→21:02)
[2017-03-08] MEDS: METOPROLOL SUCC XL 50 MG TABCR 50 MG TAB.ER.24H PO SCH ×2 (08:26→21:02)
[2017-03-08] MEDS: ENOXAPARIN 30 MG/0.3 ML SYR SC SCH (08:26)
[2017-03-08] MEDS: ASPIRIN 81 MG ENTERIC COATED PO SCH (08:26)
[2017-03-08] MEDS: ISOSORBIDE MONONITR 30MG TABCR PO SCH (08:26)
[2017-03-08] MEDS: INSULIN GLARGINE 100 U/ML 3 ML PEN SUBQ SCH (08:27)
[2017-03-08] MEDS: NYSTATIN 100,000 U/GM PWD 15GM TP SCH ×2 (09:54→21:11)
--- NOTE | 2017-03-08 11:03 | Hospitalist Progress Note ---
Subjective Progress Notes Subjective The patient reports that she feels like she requires too much help to go back to [facility] at this time. Staff reports that she is requiring a lot of assistance with ambulation. The patient does not report any SOB. Physical Exam Vital Signs Date Time Temp Pulse Resp B/P (MAP) Pulse Ox O2 Delivery O2 Flow Rate FiO2 03/08/17 09:57 92 Nasal Cannula 2.0 03/08/17 08:22 97.4 62 24 145/69 (94) Intake and Output 03/09/17 07:00 Intake Total 240 ml Balance 240 ml Intake Oral 240 ml # Bowel Movements 1 General Appearance: Alert, Awake, No Acute Distress Cardiovascular: Regular Rate and Rhythm Respiratory: Clear to Auscultation (Doesn't move air well to the lower quarter of the lungs) Result Diagram: 03/07/17 0537 03/08/17 0545 Assessment and Plan Problems: (1) Acute systolic CHF (congestive heart failure) Assessment & Plan: She did present with increased shortness of breath and edema. Her diuretics were recently increased, but she has not been responding to this. Her last documented ejection fraction was 29% (01/2017). She had 1975cc removed from the right chest by thoracentesis on 03/06. She was treated with IV Lasix and her oral Lasix was restarted. Her weight was not improving. We placed back on scheduled IV Lasix on 03/07. She is already on chronic treatment with lisinopril, metoprolol, and oral Lasix. She is working with OT/ PT. SW involved with disposition. (2) Fecal impaction Status: Acute Assessment & Plan: She has had results with laxatives. She is on a bowel regimen. (3) CAD (coronary artery disease) Assessment & Plan: She is on chronic treatment with aspirin, metoprolol and isosorbide. (4) Hypothyroidism Status: Chronic Assessment & Plan: She is on chronic treatment with Synthroid. (5) Type II diabetes mellitus Status: Chronic Assessment & Plan: She is on chronic treatment with Lantus. We also are covering her with sliding scale level #2. (6) Parkinson disease Status: Chronic Assessment & Plan: She is on chronic treatment with Sinemet. (7) Paroxysmal atrial fibrillation Status: Chronic Assessment & Plan: She has ventricular pacemaker and is essentially fully paced. She is on chronic treatment with aspirin and metoprolol. Heart Failure NYHA Class: IV Is Patient on MALLORIE Inhibitor?: No Is Patient on Beta Corbin?: Yes Exam Sepsis Risk: No Definite Risk LAI GOFF MD Mar 08, 2017 11:03
[2017-03-08 16:42] VITALS: BP 113/53
[2017-03-08 18:40] VITALS: BP 108/62
[2017-03-08] MEDS: ATORVASTATIN 10 MG TAB PO SCH (21:02)
[2017-03-08] MEDS: INSULIN HUM LISPRO 100 UN/ML 3 ML VIAL SUBQ PRN (21:09)
[2017-03-09 03:38] VITALS: BP 106/55
[2017-03-09] MEDS: LEVOTHYROXINE SOD 0.1 MG TAB PO SCH (05:59)
[2017-03-09 07:16] VITALS: BP 114/78
[2017-03-09] MEDS: POLYETHYLENE GLYCOL 17 GM PKT PO SCH (08:48)
[2017-03-09] MEDS: ENOXAPARIN 30 MG/0.3 ML SYR SC SCH (08:49)
[2017-03-09] MEDS: DOCUSATE SODIUM 100 MG CAP PO SCH (08:50)
[2017-03-09] MEDS: ISOSORBIDE MONONITR 30MG TABCR PO SCH (08:50)
[2017-03-09] MEDS: METOPROLOL SUCC XL 50 MG TABCR 50 MG TAB.ER.24H PO SCH (08:51)
[2017-03-09] MEDS: CARBIDOPA/LEVODOPA 25/250 TAB PO SCH ×2 (08:52→13:51)
[2017-03-09] MEDS: ASPIRIN 81 MG ENTERIC COATED PO SCH (08:52)
[2017-03-09] MEDS: LISINOPRIL 5 MG TAB PO SCH (08:52)
[2017-03-09] MEDS: INSULIN GLARGINE 100 U/ML 3 ML PEN SUBQ SCH (08:54)
[2017-03-09] MEDS: NYSTATIN 100,000 U/GM PWD 15GM TP SCH (08:54)
[2017-03-09] MEDS: FUROSEMIDE 40 MG/4 ML VIAL IVP SCH (08:55)
--- NOTE | 2017-03-09 11:27 | RADIOLOGY IMAGING REPORT ---
[place] [facility] [place] NAME: Olya Menchaca : 1925 MR: [id number] V: [id number] EXAM DATE: ORDERING PHYSICIAN: CHE ROACH TECHNOLOGIST: Location: [facility] Patient: Olya Menchaca : 1925 Visit/Account:[id number] Date of Sevice: 03/09/2017 Exam type: CHEST SINGLE AP History: CHF/right pleural effusion Comparison: March 06, 2017. Findings: There is been an increase in the small right pleural effusion.. Small left pleural effusion appears relatively unchanged. Mild interstitial prominence noted throughout the lungs in addition to cardiom egaly which may be secondary to pulmonary edema as the clinical history suggests. There suggestion o f a left basilar airspace consolidation consistent with infiltrate and/or atelectasis. Dual lead car diac pacemaker again noted IMPRESSION: 1. Slight increase in small right pleural effusion Small left pleural effusion unchanged Mild interstitial prominence of the lungs in addition to cardiomegaly which may be secondary to pulmo nary edema as the clinical history suggests Suggestion of left basilar airspace consolidation consistent with infiltrate and/or atelectasis. Report Dictated By: Estefany Mane MD at 03/09/2017 11:20 AM Report E-Signed By: Estefany Mane MD at 03/09/2017 11:22 AM WSN:[email or web address]
[2017-03-09] MEDS: INSULIN HUM LISPRO 100 UN/ML 3 ML VIAL SUBQ PRN (11:59)
--- NOTE | 2017-03-09 15:04 | Hospitalist Depart ---
Discharge Summary Reason for Hosp/Final Diag: (1) Acute systolic CHF (congestive heart failure) Hospital Course & Plan: She did present with increased shortness of breath and edema. Her diuretics were recently increased, but she had not been responding to this. Her last documented ejection fraction was 29% (01/2017). She had a persistent right-sided pleural effusion and had 1975cc removed from the right chest by thoracentesis on 03/06/17. Evaluation of this fluid showed it to be transudative and most likely secondary to her heart failure. She was initially treated with IV Lasix and her oral Lasix was subsequently restarted. Her weight was not improving. We placed her back on scheduled IV Lasix on 03/07/17. She has already been on chronic treatment with lisinopril and metoprolol as well as the oral Lasix. She was working with OT/PT. SW was involved with her disposition. It was felt she may be best served with ongoing rehabilitative therapy. Arrangements were made for transfer to [facility]. (2) Fecal impaction Status: Acute Hospital Course & Plan: She has had results with laxatives. She is on a bowel regimen. (3) CAD (coronary artery disease) Hospital Course & Plan: She is on chronic treatment with aspirin, metoprolol and isosorbide. (4) Hypothyroidism Status: Chronic Hospital Course & Plan: She is on chronic treatment with Synthroid. (5) Type II diabetes mellitus Status: Chronic Hospital Course & Plan: She is on chronic treatment with Lantus. We also are covering her with sliding scale level #2. (6) Parkinson disease Status: Chronic Hospital Course & Plan: She is on chronic treatment with Sinemet. (7) Paroxysmal atrial fibrillation Status: Chronic Hospital Course & Plan: She has ventricular pacemaker and is essentially fully paced. She is on chronic treatment with aspirin and metoprolol. Departure Weight (Pounds): 188 Weight (Ounces): 2.0 Result Diagram: 03/07/1753603/08/17544 Item Value Date Time White Blood Count 7.8 k/uL 03/04/172054 Hematocrit 43.9 % 03/04/172054 Hemoglobin 14.0 g/dL 03/04/172054 Platelet Count 147 K/uL L 03/04/172054 D-Dimer Quantitative (PE/DVT) 1.73 ug/ml H 1/5/18 2055 Sodium Level 135 mmol/L L 03/04/172054 Potassium Level 4.3 mmol/L 03/04/172054 Chloride Level 93 mmol/L L 03/04/172054 Carbon Dioxide Level 32 mmol/L H 03/04/172054 Blood Urea Nitrogen 45 mg/dl H 03/04/172054 Creatinine 1.30 mg/dl H 03/04/172054 Glomerular Filtration Rate Calc 38.6 03/04/172054 Random Glucose 154 mg/dl H 03/04/172054 Lactate 2.0 mmol/L 03/04/172054 Calcium Level 8.9 mg/dl 03/04/172054 Total Bilirubin 0.7 mg/dl 03/04/172054 Aspartate Amino Transf (AST/SGOT) 26 U/L 03/04/172054 Alanine Aminotransferase (ALT/SGPT) 20 U/L 03/04/172054 Alkaline Phosphatase 59 U/L 03/04/172054 Total Protein 5.8 gm/dl L 03/04/172054 Albumin 3.0 g/dl L 03/04/172054 B-Type Natriuretic Peptide 2230 pg/ml H 03/04/172054 Body Fluid Glucose 125 mg/dL 03/06/17 144 Body Fluid Total Protein < 2.0 G/dl 03/06/17 1445 Body Fluid Monocytes 8 % 03/06/17 144 Body Fluid Lymphocytes 36 % 03/06/17 1445 Body Fluid Neutrophils 56 % 03/06/17 1445 Body Fluid RBC 304 03/06/17 1445 Body Fluid WBC 117 03/06/17 1445 Body Fluid pH 7.0 pH 03/06/17 1445 Body Fluid Type right pleural 03/06/17 1445 Influenza Type A Antigen Negative 03/04/172054 Influenza Type B Antigen Negative 03/04/172054 [facility] *LIVE* [address] [place] [address] CATIE BHATIA M.D., DIRECTOR OF LABORATORY SERVICES LUIS LIMA M.D., PATHOLOGIST RUN DATE: 03/09/17 Specimen Inquiry Report PAGE 1 RUN TIME: 814 PATIENT: PHILL MENCHACA ACCT: [id number] LOC: [facility] U : [id number] AGE/SX: 89/F ROOM: [facility] REG : 03/04/[address]: EMAMNUEL DERAS DO : 1925 BED: 271 DIS : STATUS: ADM IN TLOC: SPEC #: [id number] PAMELA: 03/06/17 STATUS: COMP REQ #: [id number] RECD: 03/06/[address]: CHE ROACH MD SOURCE: PLEURAL FL ENTR: 03/06/[address]: EMMANUEL DERAS DO SPDESC: SARAH WILSON MD ORDERED: CULT BF/GS COMMENTS: Has specimen been collected/obtained? Y Specimen Description: right Procedure Result Verified GRAM STAIN Final 03/06/17-1729 NO ORGANISMS SEEN NO WHITE BLOOD CELLS CULTURE BODY FLUID Final 03/09/17-813 No growth after 3 days Imaging PATIENT NAME: Phill Menchaca : 1925 MR: [id number] V: [id number] EXAM DATE: ORDERING PHYSICIAN: ESTEBAN MATTHEW TECHNOLOGIST: Location: [facility] [place] Patient: Phill Menchaca : 1925 Visit/Account:[id number] Date of Sevice: 03/04/2017 SINGLE AP RADIOGRAPH OF THE CHEST 03/04/2017 8:20 PM. INDICATION: tachypnea COMPARISON: 02/11/2017. FINDINGS: Persistent moderate volume right and small left pleural effusions with bibasilar consolidation/atelectasis, not significantly changed. No pleural effusion or pneumothorax. Heart size is likely unchanged. Unchanged dual- chamber pacer. IMPRESSION: No significant change. Report Dictated By: Efrain Rodríguez MD at 03/04/2017 10:02 PM Report E-Signed By: Efrain Rodríguez MD at 03/04/2017 10:05 PM WSN:[id number] PATIENT NAME: Phill Menchaca : 1925 MR: [id number] V: [id number] EXAM DATE: [id number] ORDERING PHYSICIAN: CHE ROACH TECHNOLOGIST: Location: [facility] [place] Patient: Phill Menchaca : 1925 Visit/Account:[id number] Date of Sevice: 03/06/2017 CHEST SINGLE AP Indication: Right thoracentesis.. Comparison: Exam done earlier in the day. Findings: Cardiac silhouette remains mildly enlarged but unchanged. Mediastinal silhouette and pulmonary vessels within normal limits. Left subclavian pacemakers in place and unchanged. There is no focal infiltrate or lobar consolidation. No appreciable right pneumothorax. No left pneumothorax. There is minimal residual right pleural fluid and small left pleural fluid visualized with minimal by basilar atelectasis. No discrete nodule. Upper abdomen is unremarkable. No acute bony abnormality. Degenerative change seen in the right shoulder. IMPRESSION: 1. No appreciable right pneumothorax. Small residual right pleural fluid. Small left pleural fluid. Mild bibasilar atelectasis. Report Dictated By: Giovany Rice at 03/06/2017 3:58 PM Report E-Signed By: Giovany Rice at 03/06/2017 4:01 PM WSN:[id number] PATIENT NAME: Phill Menchaca : 1925 MR: [id number] V: [id number] EXAM DATE: ORDERING PHYSICIAN: CHE ROACH TECHNOLOGIST: Location: [facility] [place] Patient: Phill Menchaca : 1925 Visit/Account:[id number] Date of Sevice: 03/09/2017 Exam type: CHEST SINGLE AP History: CHF/right pleural effusion Comparison: March 06, 2017. Findings: There is been an increase in the small right pleural effusion.. Small left pleural effusion appears relatively unchanged. Mild interstitial prominence noted throughout the lungs in addition to cardiomegaly which may be secondary to pulmonary edema as the clinical history suggests. There suggestion of a left basilar airspace consolidation consistent with infiltrate and/or atelectasis. Dual lead cardiac pacemaker again noted IMPRESSION: 1. Slight increase in small right pleural effusion Small left pleural effusion unchanged Mild interstitial prominence of the lungs in addition to cardiomegaly which may be secondary to pulmonary edema as the clinical history suggests Suggestion of left basilar airspace consolidation consistent with infiltrate and /or atelectasis. Report Dictated By: Estefnay Mane MD at 03/09/2017 11:20 AM Report E-Signed By: Estefany Mane MD at 03/09/2017 11:22 AM WSN:[email or web address] Condition: Improved Discharge: [facility] E[facility] PT/OT Follow Up For: PT For Strengthening, OT For ADL's Time Spent: > 30 min Discharge Instructions Home Meds Active Scripts Lisinopril (LISINOPRIL) 5 Mg Tablet, 5 MG PO QDAY, #90 TAB 3 Refills Prov:SARAH WILSON MD 03/01/17 Furosemide (FUROSEMIDE) 40 Mg Tablet, 1 TAB PO BID, #180 TAB 0 Refills 80 mg tab po QAM 40 mg tab po at noon daily. Prov:SARAH WILSON MD 02/25/17 Isosorbide Mononitrate (ISOSORBIDE MONONITRATE ER) 60 Mg Tab.er.24h, 1 TAB PO DAILY, #90 TAB 0 Refills Prov:SARAH WILSON MD 02/23/17 Metoprolol Succinate (METOPROLOL SUCCINATE) 100 Mg Tab.er.24h, 1 TAB PO BID, # 180 TAB 1 Refill Prov:SARAH WILSON MD 02/14/17 Atorvastatin Calcium (ATORVASTATIN CALCIUM) 10 Mg Tablet, 1 TAB PO HS, #90 TAB 4 Refills Prov:SARAH WILSON MD 02/14/17 Levodopa/Carbidopa (CARBIDOPA-LEVODOPA 25-250 TAB) 1 Each Tab, 1 TAB PO TID, # 90 TAB 5 Refills Prov:SARAH WILSON MD 02/14/17 Alendronate Sodium (FOSAMAX) 70 Mg Tablet, 70 MG PO QWK, #12 TAB 4 Refills Prov:SARAH WILSON MD 10/15/16 Levothyroxine Sodium (LEVOTHYROXINE SODIUM) 100 Mcg Tablet, 1 TAB PO QDAY, #90 TAB 3 Refills Prov:SARAH WILSON MD 04/12/16 Aspirin (ASPIR 81) 81 Mg Tablet.dr, 81 MG PO QDAY, #90 TAB 4 Refills Prov:SARAH WILSON MD 03/31/16 Lancets (ONE TOUCH LANCETS) 1 Each Each, 1 EA MC 5XD, #100 12 Refills Test Glucose before Fasting each morning, before meals and HS. Length of need:99 months Prov:SARAH WILSON MD 03/15/16 [place], Insulin Disposable (PEN NEEDLES) 1 Each Dis.needle, 1 EACH MC QAM, #1 12 Refills Prov:SARAH WILSON MD 03/15/16 Blood Sugar Diagnostic (ONE TOUCH ULTRA TEST STRIPS) 1 Each Strip, 1 EACH MC 5XD , #100 STRIP 12 Refills Test Glucose before Fasting each morning, before meals and HS. Length of need:99 months Prov:SARAH WILSON MD 03/15/16 Cholecalciferol (Vitamin D3) (VITAMIN D3) 1,000 Unit Capsule, 1 CAP PO QDAY, # 90 CAPSULE 4 Refills Prov:SARAH WILSON MD 02/27/16 Reported Medications Lactose-Reduced Food (Ensure Original) 237 Ml Liquid, 1 BOTTLE PO TID 03/06/17 Mineral Oil/Petrolatum,White (Retaine Pm Eye Ointment) 5 Gm Oint...g., 1 LIZ OU HS 02/10/17 Polyethylene Glycol 3350 (MIRALAX) 17 Gm Powd.pack, 17 GM PO DAILY, PKT 02/10/17 Insulin Glargine (LANTUS) 100 Unit/Ml Soln, 21 UNIT SUBQ DAILY, ML 02/10/17 Oxygen (OXYGEN) Inha, 2 L INH, L 12/12/14 Magnesium Hydroxide (MILK OF MAGNESIA) 400 Mg/5 Ml Oral.susp, 400 MG PO PRN 10/05/13 Acetaminophen (TYLENOL) 325 Mg Tablet, 325-650 MG PO Q4H Y for PAIN 05/30/13 Discontinued Reported Medications Guaifenesin/Dextromethorphan (Robafen Dm Cgh-Chest Kg Liq) 100 Mg-10 Mg/5 Ml Liquid, 5 ML PO Q4-6H for cough 02/10/17 Discontinued Scripts Lactose-Free Food (Ensure High Protein) 237 Ml Liquid, 1 BOTTLE PO TID for 30 Days, ML Prov:SARAH WILSON MD 05/22/15 Diet: Diabetic, No Added Salt (SHRAVAN) Activity: As Tolerated, With Walker Special Instructions: She will be followed by the Hospitalist Service while on ECF. Copies to: SARAH WILSON MD Venous Thromboembolism Antithrombotics Is Pt On Any Antithrombotics?: No Heart Failure NYHA Class: IV Is Patient on MALLORIE Inhibitor?: No Is Patient on Beta Corbin?: Yes CHE ROACH MD Mar 09, 2017 15:04
--- NOTE | 2017-03-09 16:13 | Medical Nutrition Therapy ---
Nutrition Anthropometrics Height (Inches): 65.00 Height (Calculated Centimeters: 165.754078 Weight (Pounds): 188 Weight (Calculated Kilograms): 85.332 BMI Calculated: 31.28 Shekhar Nutrition Score: Probably Inadequate Shekhar Nutrition Risk Score: 15 Dietary Referral Nutrition Risk Factors: Diff. Swallowing Nutrition Risk Comment: Physical Findings Physical Appearance: Obese BMI 30-39 Skin Appearance Skin Appearance: Edema Edema Location Modifier: Both Edema Location: Lower Extremity Type of Edema: Degree of Edema: 3+ Gastrointestinal Symptoms GI Symtoms: Tube Present: Bowel Sounds: Recent Bowel Pattern: Constipated Stool Characteristics: Nutritional Diagnosis Nutritional Risk Acuity 2: CHF w/Complication Nutritional Risk Acuity 3: Alzheimer's Past Medical History: CHF, type 2 diabetes, HTN, hypothyroid, afib, parkinson's, CKD stage 3, CAD Nutritional Acuity: 2-Moderate Nutrition Diagnosis: Decreased Nutrient Needs Nutrition Etiology: Physiological Causes Nutrition Problem/Etiology/Sym: Decreased fluid/Na needs r/t CHF complication AEB 3+ pitting lower extremity edema Energy Requirement: 1665 ([place] St Jeor) Protein Requirement: 85 (1 g/kg) Fluid Requirement: 2125 (25 ml/kg) Nutrition Intervention: Cont diet as ordered, Encourage intake Drug: Diuretics Nutrition Monitoring & Eval Nutrition Goals: Eat 75-100% Meal Nutrition Follow-Up: Good Intake RD Patient Assessment Time: [address] Assessment Type: RD Re-Assessment Patient Nutrition Acuity: 2-Moderate Follow Up Date: Mar 09, 2017 Nutritional Comment: Assisted living resident admitted with CHF. Class I obesity with BMI of 31.4. Wt status to change as edmea resolves. Alb 3.0, BNP 2230, Glu 154. T2DM treated in hospital with Lantus 15 q day, Lispro SSI. Receiving Diabetic diet with no reports of intake. Provided 15 minutes of CHF education. 03/09 Pt on ADA diet averaging 55% intake of regular portions. Pt continues on K+ depleting lasix. K+ WNL. Other notable labs include Na 131, BUN 44, Cr 1.2, and Glu 99. Pt continues on daily wt monitoring. She has lost 6 pounds in 3 days most likely due to the diuretic. Pt still has 3+ pitting lower extremity edema. Will continue to monitor wt, intake, labs, etc. WOLF ALONSO Mar 09, 2017 11:01
== END 2017-03-09 14:05 | DRG 291 ==
LOC: ER 20:05 → MED 23:10
PROVIDERS: ADMIT Family Medicine; ATTEND Family Medicine
PROC: 0W993ZX Drainage of Right Pleural Cavity, Percutaneous Approach, Diagnostic (ICD-10-PCS; principal; 2017-03-07)
DX: I13.0 Hypertensive heart and chronic kidney disease with heart failure and stage 1 through stage 4 chronic kidney disease, or unspecified chronic kidney disease (principal); I50.23 Acute on chronic systolic (congestive) heart failure; J91.8 Pleural effusion in other conditions classified elsewhere; K56.41 Fecal impaction; I25.10 Atherosclerotic heart disease of native coronary artery without angina pectoris; E11.22 Type 2 diabetes mellitus with diabetic chronic kidney disease; N18.9 Chronic kidney disease, unspecified; E03.9 Hypothyroidism, unspecified; I48.0 Paroxysmal atrial fibrillation; G20 Parkinson's disease; G47.30 Sleep apnea, unspecified; R06.82 Tachypnea, not elsewhere classified; I34.0 Nonrheumatic mitral (valve) insufficiency; I25.2 Old myocardial infarction; Z95.0 Presence of cardiac pacemaker; Z85.820 Personal history of malignant melanoma of skin; Z90.710 Acquired absence of both cervix and uterus; Z90.49 Acquired absence of other specified parts of digestive tract; Z88.8 Allergy status to other drugs, medicaments and biological substances; Z79.4 Long term (current) use of insulin
CPT/HCPCS: 36415; 36416; 71045; 82040; 82150; 82247; 82310; 82374; 82435; 82565; 82945; 82947; 82948; 83605; 83880; 83986; 84075; 84132; 84155; 84157; 84295; 84450; 84460; 84520; 85025; 85379; 87071; 87205; 87502; 88104; 88305; 89050; 97161; 97165; 99285; A7048; J1650; J1815; J1940; J2001

== ENCOUNTER → 2017-03-04 | Outpatient (CLI) | payer MEDICARE, MEDICAID, OTHER ==
[~2017-03-04] MED LIST changes: +LACT237L63 PO
[2017-03-05 10:53] VITALS: BMI 31.3
== END ==
LOC: AMB 19:40
PROVIDERS: ATTEND Nurse Practitioner
DX: R06.00 Dyspnea, unspecified (principal); R09.02 Hypoxemia
CPT/HCPCS: A0425; A0429

== ENCOUNTER 2017-03-09 14:05 | Inpatient (IN) | payer MEDICARE, MEDICAID, OTHER ==
[2017-03-05 10:53] VITALS: Ht 165.1 cm; Wt 83.9 kg
[~2017-03-09] VITALS: Ht 165.1 cm; Wt 83.9 kg
[~2017-03-09 14:05] MED LIST changes: +LACT237L63 PO
[2017-03-09] MEDS ORDERED: MAGNESIUM HYDROXIDE* 30ML UDCP PO PRN (14:27)
[2017-03-09] MEDS ORDERED: LEVOTHYROXINE SOD 0.1 MG TAB PO SCH (14:27)
[2017-03-09] MEDS ORDERED: BISACODYL 10 MG SUPP PR PRN (14:27)
[2017-03-09] MEDS ORDERED: FUROSEMIDE 40 MG TAB PO ONE (14:35)
[2017-03-09] MEDS ORDERED: PNEUMOCOC VAC POLY 25MCG/0.5ML IM ONLY ONE (14:40)
[2017-03-09] MEDS ORDERED: INFLUENZA VIRUS VAC 0.5 ML SYR IM ONLY ONE (14:40)
[2017-03-09 14:45] VITALS: BP 116/56
--- NOTE | 2017-03-09 15:06 | ECF H&P BLANK ---
[facility] H&P UPDATE History of Present Illness Chief Complaint Shortness of breath History of Present Illness This patient was brought to the emergency room by assisted living staff secondary to concerns that her breathing was more labored. They also noted increased edema in her legs. She does have chronic heart failure and her diuretics were recently increased. However, she has actually been gaining weight since her last admission. History Problems: (1) CAD (coronary artery disease) (2) Hyperlipidemia Status: Chronic (3) Hypothyroidism Status: Chronic (4) Hypertension, benign Status: Chronic (5) Type II diabetes mellitus Status: Chronic (6) Chronic systolic CHF (congestive heart failure), NYHA class 4 Status: Chronic (7) Paroxysmal atrial fibrillation Status: Chronic (8) Mitral regurgitation Status: Chronic (9) Parkinson disease Status: Chronic (10) Angina pectoris Status: Chronic (11) Non-ST elevation (NSTEMI) myocardial infarction Status: Resolved (12) Pulmonary embolism Status: Chronic (13) Melanoma of left upper arm Status: Resolved (14) Pacemaker Status: Chronic Home Meds Active Scripts Lisinopril (LISINOPRIL) 5 Mg Tablet, 5 MG PO QDAY, #90 TAB 3 Refills Prov:SARAH WILSON MD 03/01/17 Furosemide (FUROSEMIDE) 40 Mg Tablet, 1 TAB PO BID, #180 TAB 0 Refills 80 mg tab po QAM 40 mg tab po at noon daily. Prov:SARAH WILSON MD 02/25/17 Isosorbide Mononitrate (ISOSORBIDE MONONITRATE ER) 60 Mg Tab.er.24h, 1 TAB PO DAILY, #90 TAB 0 Refills Prov:SARAH WILSON MD 02/23/17 Metoprolol Succinate (METOPROLOL SUCCINATE) 100 Mg Tab.er.24h, 1 TAB PO BID, # 180 TAB 1 Refill Prov:SARAH WILSON MD 02/14/17 Atorvastatin Calcium (ATORVASTATIN CALCIUM) 10 Mg Tablet, 1 TAB PO HS, #90 TAB 4 Refills Prov:SARAH WILSON MD 02/14/17 Levodopa/Carbidopa (CARBIDOPA-LEVODOPA 25-250 TAB) 1 Each Tab, 1 TAB PO TID, # 90 TAB 5 Refills Prov:SARAH WILSON MD 02/14/17 Alendronate Sodium (FOSAMAX) 70 Mg Tablet, 70 MG PO QWK, #12 TAB 4 Refills Prov:SARAH WILSON MD 10/15/16 Levothyroxine Sodium (LEVOTHYROXINE SODIUM) 100 Mcg Tablet, 1 TAB PO QDAY, #90 TAB 3 Refills Prov:SARAH WILSON MD 04/12/16 Aspirin (ASPIR 81) 81 Mg Tablet.dr, 81 MG PO QDAY, #90 TAB 4 Refills Prov:SARAH WILSON MD 03/31/16 Lancets (ONE TOUCH LANCETS) 1 Each Each, 1 EA MC 5XD, #100 12 Refills Test Glucose before Fasting each morning, before meals and HS. Length of need:99 months Prov:SARAH WILSON MD 03/15/16 [place], Insulin Disposable (PEN NEEDLES) 1 Each Dis.needle, 1 EACH MC QAM, #1 12 Refills Prov:SARAH WILSON MD 03/15/16 Blood Sugar Diagnostic (ONE TOUCH ULTRA TEST STRIPS) 1 Each Strip, 1 EACH MC 5XD , #100 STRIP 12 Refills Test Glucose before Fasting each morning, before meals and HS. Length of need:99 months Prov:SARAH WILSON MD 03/15/16 Cholecalciferol (Vitamin D3) (VITAMIN D3) 1,000 Unit Capsule, 1 CAP PO QDAY, # 90 CAPSULE 4 Refills Prov:SARAH WILSON MD 02/27/16 Lactose-Free Food (Ensure High Protein) 237 Ml Liquid, 1 BOTTLE PO TID for 30 Days, ML Prov:SARAH WILSON MD 05/22/15 Reported Medications Mineral Oil/Petrolatum,White (Retaine Pm Eye Ointment) 5 Gm Oint...g., 1 LIZ OU HS 02/10/17 Guaifenesin/Dextromethorphan (Robafen Dm Cgh-Chest Kg Liq) 100 Mg-10 Mg/5 Ml Liquid, 5 ML PO Q4-6H for cough 02/10/17 Polyethylene Glycol 3350 (MIRALAX) 17 Gm Powd.pack, 17 GM PO DAILY, PKT 02/10/17 Insulin Glargine (LANTUS) 100 Unit/Ml Soln, 21 UNIT SUBQ DAILY, ML 02/10/17 Oxygen (OXYGEN) Inha, 2 L INH, L 12/12/14 Magnesium Hydroxide (MILK OF MAGNESIA) 400 Mg/5 Ml Oral.susp, 400 MG PO PRN 10/05/13 Acetaminophen (TYLENOL) 325 Mg Tablet, 325-650 MG PO Q4H Y for PAIN 05/30/13 Allergies: Coded Allergies: sulfamethoxazole (Verified Allergy, Mild, 03/04/17) trimethoprim (Verified Allergy, Mild, 03/04/17) Patient History: FH: breast cancer MOTHER, , Age:80 BROTHER OR SISTER FHx: leukemia FATHER, , Age:80 Hx Smoking: No Smoking Status: Never Smoker Exposure to Second Hand Smoke?: No Caffeine/Cups Per Day: NONE Hx Alcohol Use: No Hx Substance Use Disorder: No Review of Systems All Systems Reviewed/Normal: Yes, Except as Noted Respiratory: Shortness of Breath Exam Vital Signs Vital Signs Date Time Temp Pulse Resp B/P (MAP) Pulse Ox O2 Delivery O2 Flow Rate FiO2 03/04/17 23:46 97.6 60 24 136/114 (121) 97 Nasal Cannula 2.0 Neuro: No Gross deficits Eyes: PERRLA Cardiovascular: Regular Rate and Rhythm, Other (JVD present.) Respiratory: Other (Bilateral pleural effusions.) GI: Abd Soft and Non-Tender Extremities: Edema Integumentary: No Cyanosis Medical Decision Making Data Points Result Diagram: 03/04/17205403/04/172054 Item Value Date Time B-Type Natriuretic Peptide 2230 pg/ml H 03/04/172054 EKG / Imaging Imaging Chest x-ray reviewed. Assessment and Plan Problems: (1) Acute systolic CHF (congestive heart failure) Assessment & Plan: She did present with increased shortness of breath and edema. Her diuretics were recently increased, but she has not been responding to this. Her last documented ejection fraction was 29% (01/2017). We will treat her with a dose of IV Lasix this evening. Daily weights have been ordered. She is already on chronic treatment with lisinopril, metoprolol, and oral Lasix. (2) Fecal impaction Status: Acute Assessment & Plan: She is describing symptoms consistent with constipation and impaction. We have started a bowel regime. (3) CAD (coronary artery disease) Assessment & Plan: She is on chronic treatment with aspirin and isosorbide. (4) Hypothyroidism Status: Chronic Assessment & Plan: She is on chronic treatment with Synthroid. (5) Type II diabetes mellitus Status: Chronic Assessment & Plan: She is on chronic treatment with Lantus. We will also cover her with sliding scale level #2. (6) Parkinson disease Status: Chronic Assessment & Plan: She is on chronic treatment with Sinemet. (7) Paroxysmal atrial fibrillation Status: Chronic Assessment & Plan: She is on chronic treatment with aspirin and metoprolol. Copies to: SARAH WILSON MD Venous Thromboembolism Antithrombotics Is Pt On Any Antithrombotics?: No Heart Failure NYHA Class: IV Is Patient on MALLORIE Inhibitor?: No Is Patient on Beta Corbin?: Yes Exam Sepsis Risk: No Definite Risk EMMANUEL DERAS DO Mar 05, 2017 00:39 <Electronically signed by EMMANUEL DERAS DO> D/ CHASE/MOHINI CC: SARAH WILSON MD Mrs. Menchaca will be admitted to [facility] for ongoing rehabilitative therapy. CHE ROACH MD Mar 09, 2017 15:06
--- NOTE | 2017-03-09 15:27 | Consultant Pharmacy Review ---
Correction Officer Supervisor Review Medication Review Do All Mecications have a Diag: Yes Beers Criteria Medication 2014 Sliding Scale Insulin: Slidin Scale Insulin (Perform periodic HgA1c, electrolyte levels, LFTs; annual TSH. Patient has received the prevnar 13 vaccine and she may receive [id number] if she desires.) Other General Cautions Lexicomp Interaction Analysis A = No known interaction C = Monitor therapy X = Avoid combination B = No action needed D = Consider therapy modification Drugs in this analysis: Acetaminophen; Aspirin; Bisacodyl; Docusate; HumaLOG; Isosorbide Mononitrate; Lantus; Lasix; Levothyroxine; Lipitor; Lovenox; Magnesium Hydroxide; MiraLax [OTC]; Nystatin (Topical); Prinivil; Sinemet; Toprol XL * Drug-Drug Interactions * D Bisacodyl Magnesium Hydroxide (Antacids) D Levothyroxine Magnesium Hydroxide (Magnesium Salts) Depends on Route C Aspirin (Agents with Antiplatelet Properties) Lovenox (Anticoagulants) Depends on International labeling C Aspirin (Salicylates) HumaLOG (Blood Glucose Lowering Agents) Depends on Dose C Aspirin (Salicylates) Lantus (Blood Glucose Lowering Agents) Depends on Dose C Aspirin (Salicylates) Lasix (Loop Diuretics) C Aspirin (Salicylates) Lovenox (Anticoagulants) C Aspirin (Salicylates) Prinivil (Angiotensin-Converting Enzyme Inhibitors) C HumaLOG (Antidiabetic Agents) Lasix (Hyperglycemia-Associated Agents) C HumaLOG (Hypoglycemia-Associated Agents) Lantus (Antidiabetic Agents) C HumaLOG (Hypoglycemia-Associated Agents) Lantus (Hypoglycemia-Associated Agents) C HumaLOG (Insulins) Toprol XL (Beta-Blockers) C Lantus (Antidiabetic Agents) Lasix (Hyperglycemia-Associated Agents) C Lantus (Insulins) Toprol XL (Beta-Blockers) C Lasix (Blood Pressure Lowering Agents) Sinemet (Levodopa) C Lasix (Loop Diuretics) Prinivil (Angiotensin-Converting Enzyme Inhibitors) C Lipitor (HMG-CoA Reductase Inhibitors (Statins)) Magnesium Hydroxide ( Antacids) Depends on Duration Pneumococcal Vaccine HX Pneumo Vac ([id number]): Yes (2013) HX Pneumo Vac (Pneumovax): No JOVON MOSELEY Mar 09, 2017 15:27
--- NOTE | 2017-03-09 16:03 | OT ECF NOTE ---
Type of Note: Initial Note Primary Medical Diagnosis: Generalized weakness s/p COPD exacerbation Occupational Therapy Evaluation Date: 03/09/17 SUBJECTIVE: Prior Hospitalization: H 03/04/17 thru 03/09/17 Prior Level of Function: Assist with all IADLs. Occasional assist with ADLs Prior Living Status: Assisted living Community Services: Home health care, No known needs Home Accessibility: All needs on one level Equipment Owned: Rollator Medical Complications/Past Medical History: CAD, Hyperlipidemia, hypothyroidism, Type II DM, CHF, A-Fib, Parkinson's disease, ND, PE, melanoma, pacemaker Psychosocial Support: Supportive Arya rebolledo Pain Scale (0-10): No reported at time of evaluation OBJECTIVE: Strength: MMT: Right Left Shoulder Flexion WFL WFL Elbow Flexion WFL WFL Wrist Extension WFL WFL Overseer Kosher Kitchen WFL WFL (5= normal, 4= good, 3= fair, 2= poor, 1= trace) ROM: Both upper extremities, Minimally limited Sensation: Intact, No concerns Functional Transfer: Assistive Device: Front wheeled walker, Gait belt Transfer Ability: CGA ADL: Upper body dressing: Assistive device: Upper body dressing ability: N/T Lower body dressing: Assistive device: Lower body dressing ability: Total assistance Toileting: Assistive device: Raised toilet seat, grab bars Toileting ability: Maximum assistance Grooming/hygiene: Assistive device: Grooming ability: N/T Bathing: Assistive device: Bathing ability: N/T Standardized Assessment: Melissa Index of Activities of Daily Livin/20 at initial evaluation (03/09). ASSESSMENT: Olya presents to [facility] with generalized weakness requiring increase assist for ADLs and ambulation compared to PLOF. She will benefit form skilled OT services to optimize (I) with ADLs and improve activity tolerance prior to discharge home to [facility]. Problem List/Current Limitations: Decreased activity tolerance Decreased strength Generalized weakness Poor safety awareness Decreased problem solving Lack of motivation Short Term Goals: 1) Pt will be SBA grooming/hygiene. 2) Pt will be Min A UB/LB dressing. 3) Pt will be SBA toileting. 4) Pt will be Min A shower task. 5) Pt Melissa Index of ADLs score will increase by 2 points. 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 If you have any questions, concerns, or comments about this report or plan, please contact me at . Reyna Cat MS, OTR/L Occupational Therapist ANNI
--- NOTE | 2017-03-09 16:05 | PT ECF NOTE ---
Type of Note: Initial Note Primary Medical Diagnosis: Acute systolic heart failure, weakness Physical Therapy Evaluation Date: 02/1017 SUBJECTIVE: Prior Hospitalization: [facility] 03/04/17-03/09/17 Prior Level of Function: Randy with use of 4WW, staff at [facility] provided w/c follow with ambulation to dining prior to admit to [facility] Prior Living Status: Assisted living Community Services: Support adequate, Home health [facility] Accessibility: Elevator Equipment Owned: Rollator Medical Complications/Past Medical History: See EMR Psychosocial Support: Supportive son and family Pain Scale (0-10): Pt reports pain in UEs that "comes and goes" OBJECTIVE: Strength: Right Lower Extremity: DF: 4/5 Knee flexion: 4/5 Knee extension: 4/5 Hip flexion: <3/5 Left Lower Extremity: DF: 4/5 Knee flexion: 4/5 Knee extension: 4/5 Hip flexion: <3/5 ROM: WFL Sensation: No abnormalities noted Other Neuro findings: None noted Bed Mobility: NT, pt up in chair and requested to return to chair after evaluation Transfers: CGA with RW Gait: CGA x20' with RW Stairs: NT Timed Up and Go (>12 seconds indicated increased risk for falls): 3 minutes 45 seconds ASSESSMENT: PT/OT co eval complete. Pt demonstrates decreased tolerance to functional mobility and increased need of assistance from others. Pt requires verbal cues to push up from chair instead of pulling on walker. Pt with poor eccentric control of stand to sit transfers. Pt ambulates with extremely slow gait speed, requiring 3 minutes and 45 seconds to complete TUG test (20' of total ambulation). She will benefit from skilled rehab to increase safety and decrease risk of falls prior to d/c to [facility]. Problem List/Current Limitations: Pain Decreased activity tegan Decreased strength Decreased balance Generalized weakness Decreased problem solving Short Term Goals: 1: Pt to complete bed mobility with SBA 2: Pt to complete transfers with SBA and least restrictive AD 3: Pt to ambulate 3x50' with SBA and least restrictive AD, with w/c follow to allow for seated rest breaks and simulate home environment. 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 Pt/Caregiver Training Bed Mobility Thank you for this referral. If you have any questions, concerns, or comments about this report or plan, please contact me at . Gaby Laurent, PT, DPT [facility]
[2017-03-09 17:00] VITALS: BP 97/62
[2017-03-09] MEDS: CARBIDOPA/LEVODOPA 25/250 TAB PO SCH (20:44)
[2017-03-09] MEDS: NYSTATIN 100,000 U/GM PWD 15GM TP SCH (20:44)
[2017-03-09] MEDS: INSULIN HUM LISPRO 100 UN/ML 3 ML VIAL SUBQ PRN (20:44)
[2017-03-09] MEDS: METOPROLOL SUCC XL 50 MG TABCR 50 MG TAB.ER.24H PO SCH (20:44)
[2017-03-09] MEDS: ATORVASTATIN 10 MG TAB PO SCH (20:44)
[2017-03-09] MEDS: DOCUSATE SODIUM 100 MG CAP PO SCH (20:44)
[2017-03-10] MEDS: LEVOTHYROXINE SOD 0.1 MG TAB PO SCH (05:20)
[2017-03-10 08:10] VITALS: BP 122/77
[2017-03-10] MEDS: NYSTATIN 100,000 U/GM PWD 15GM TP SCH ×2 (08:33→20:42)
[2017-03-10] MEDS: ENOXAPARIN 30 MG/0.3 ML SYR SC SCH (08:33)
[2017-03-10] MEDS: POLYETHYLENE GLYCOL 17 GM PKT PO SCH (08:33)
[2017-03-10] MEDS: CARBIDOPA/LEVODOPA 25/250 TAB PO SCH ×3 (08:34→20:42)
[2017-03-10] MEDS: FUROSEMIDE 40 MG TAB PO SCH ×2 (08:35→14:56)
[2017-03-10] MEDS: METOPROLOL SUCC XL 50 MG TABCR 50 MG TAB.ER.24H PO SCH ×2 (08:35→20:42)
[2017-03-10] MEDS: ASPIRIN 81 MG ENTERIC COATED PO SCH (08:35)
[2017-03-10] MEDS: DOCUSATE SODIUM 100 MG CAP PO SCH ×2 (08:35→20:42)
[2017-03-10] MEDS: LISINOPRIL 5 MG TAB PO SCH (08:36)
[2017-03-10] MEDS: INSULIN GLARGINE 100 U/ML 3 ML PEN SUBQ SCH (08:37)
[2017-03-10] MEDS: ISOSORBIDE MONONITR 30MG TABCR PO SCH (08:59)
--- NOTE | 2017-03-10 10:41 | Medical Nutrition Therapy ---
Nutrition Anthropometrics Height (Inches): 65.00 Height (Calculated Centimeters: 165.273970 Weight (Pounds): 185 Weight (Calculated Kilograms): 84.085 BMI Calculated: 31.28 Shekhar Nutrition Score: Probably Inadequate Shekhar Nutrition Risk Score: 15 Dietary Referral Nutrition Risk Factors: Diff. Swallowing Nutrition Risk Comment: Physical Findings Physical Appearance: Obese BMI 30-39 Skin Appearance Skin Appearance: Edema Edema Location Modifier: Both Edema Location: Lower Extremity Type of Edema: Degree of Edema: 1+ Gastrointestinal Symptoms GI Symtoms: Tube Present: Bowel Sounds: Recent Bowel Pattern: Incontinent Stool Characteristics: Nutritional Diagnosis Nutritional Risk Acuity 2: CHF w/Complication Nutritional Risk Acuity 3: Fair Appetite, Alzheimer's Past Medical History: CHF, type 2 diabetes, HTN, hypothyroid, afib, parkinson's, CKD stage 3, CAD Nutritional Acuity: 2-Moderate Nutrition Diagnosis: Decreased Nutrient Needs Nutrition Etiology: Physiological Causes Nutrition Problem/Etiology/Sym: decreased Na and fluid needs r/t dx CHF AEB 1+ pitting edema LE Adjusted Energy Requirement Re: 1665 (M- St J) Protein Requirement: 85 (1gm/kg) Fluid Requirement: 2100 (25ml/kg) Diet Type: Diabetic Nutrition Intervention: Cont diet as ordered, Encourage intake, Between meal supplement Drug/Nutrition Recommendations: Check Serum K+ Nutrition Monitoring & Eval Nutrition Goals: Eat 75-100% Meal RD Patient Assessment Time: [address] Assessment Type: RD Assessment Patient Nutrition Acuity: 2-Moderate Follow Up Date: Mar 15, 2017 Nutritional Comment: 03/10 Pt admitted with CHF. Pt weighed 195# with 3+ pitting edema on 03/05 when admitted to medical unit. Edema has since declined to 1+ pitting edema with 10# wt loss. Anticipate cont wt loss until edema resolved. Pt is recieving K+ depleting duiretic. Recommend check K+ levels. Pt is on diabetic diet. BG mildly elevated up to 185. Pt is eating 50- 100% of meals. Will cont to monitor and encourage intake. ОЛЬГА BROWN Mar 10, 2017 10:41
[2017-03-10 15:55] VITALS: BP 137/86
[2017-03-10] MEDS: INSULIN HUM LISPRO 100 UN/ML 3 ML VIAL SUBQ PRN ×2 (17:24→20:42)
[2017-03-10] MEDS: ATORVASTATIN 10 MG TAB PO SCH (20:42)
[2017-03-11] MEDS: LEVOTHYROXINE SOD 0.1 MG TAB PO SCH (05:57)
[2017-03-11 08:25] VITALS: BP 128/70
[2017-03-11] MEDS: ENOXAPARIN 30 MG/0.3 ML SYR SC SCH (08:30)
[2017-03-11] MEDS: NYSTATIN 100,000 U/GM PWD 15GM TP SCH ×2 (08:31→20:27)
[2017-03-11] MEDS: INSULIN HUM LISPRO 100 UN/ML 3 ML VIAL SUBQ PRN ×3 (08:32→20:30)
[2017-03-11] MEDS: INSULIN GLARGINE 100 U/ML 3 ML PEN SUBQ SCH (08:34)
[2017-03-11] MEDS: FUROSEMIDE 40 MG TAB PO SCH ×2 (08:36→13:19)
[2017-03-11] MEDS: LISINOPRIL 5 MG TAB PO SCH (08:36)
[2017-03-11] MEDS: ISOSORBIDE MONONITR 30MG TABCR PO SCH (08:36)
[2017-03-11] MEDS: DOCUSATE SODIUM 100 MG CAP PO SCH ×2 (08:36→20:29)
[2017-03-11] MEDS: METOPROLOL SUCC XL 50 MG TABCR 50 MG TAB.ER.24H PO SCH ×2 (08:36→20:29)
[2017-03-11] MEDS: ASPIRIN 81 MG ENTERIC COATED PO SCH (08:36)
[2017-03-11] MEDS: CARBIDOPA/LEVODOPA 25/250 TAB PO SCH ×3 (08:36→20:29)
[2017-03-11] MEDS: POLYETHYLENE GLYCOL 17 GM PKT PO SCH (08:37)
[2017-03-11 16:57] VITALS: BP 148/80
[2017-03-11] MEDS: ATORVASTATIN 10 MG TAB PO SCH (20:29)
[2017-03-12] MEDS: LEVOTHYROXINE SOD 0.1 MG TAB PO SCH (06:02)
[2017-03-12 07:41] VITALS: BP 116/62
[2017-03-12] MEDS: DOCUSATE SODIUM 100 MG CAP PO SCH ×2 (08:33→21:34)
[2017-03-12] MEDS: NYSTATIN 100,000 U/GM PWD 15GM TP SCH ×2 (08:33→21:34)
[2017-03-12] MEDS: LISINOPRIL 5 MG TAB PO SCH (08:34)
[2017-03-12] MEDS: CARBIDOPA/LEVODOPA 25/250 TAB PO SCH ×3 (08:34→21:34)
[2017-03-12] MEDS: METOPROLOL SUCC XL 50 MG TABCR 50 MG TAB.ER.24H PO SCH ×2 (08:35→21:34)
[2017-03-12] MEDS: FUROSEMIDE 40 MG TAB PO SCH ×2 (08:35→13:44)
[2017-03-12] MEDS: ASPIRIN 81 MG ENTERIC COATED PO SCH (08:36)
[2017-03-12] MEDS: ISOSORBIDE MONONITR 30MG TABCR PO SCH (08:37)
[2017-03-12] MEDS: POLYETHYLENE GLYCOL 17 GM PKT PO SCH (08:37)
[2017-03-12] MEDS: INSULIN GLARGINE 100 U/ML 3 ML PEN SUBQ SCH (08:39)
[2017-03-12] MEDS: INSULIN HUM LISPRO 100 UN/ML 3 ML VIAL SUBQ PRN ×3 (08:39→17:02)
[2017-03-12] MEDS: ENOXAPARIN 30 MG/0.3 ML SYR SC SCH (08:40)
[2017-03-12 17:20] VITALS: BP 140/82
[2017-03-12] MEDS: ATORVASTATIN 10 MG TAB PO SCH (21:34)
[2017-03-13] MEDS: ACETAMINOPHEN 325 MG TAB PO PRN ×2 (06:39→21:36)
[2017-03-13] MEDS: LEVOTHYROXINE SOD 0.1 MG TAB PO SCH (06:39)
[2017-03-13 07:36] VITALS: BP 128/68
[2017-03-13] MEDS: ENOXAPARIN 30 MG/0.3 ML SYR SC SCH (08:44)
[2017-03-13] MEDS: INSULIN HUM LISPRO 100 UN/ML 3 ML VIAL SUBQ PRN ×2 (08:45→12:18)
[2017-03-13] MEDS: NYSTATIN 100,000 U/GM PWD 15GM TP SCH ×2 (08:48→21:00)
[2017-03-13] MEDS: INSULIN GLARGINE 100 U/ML 3 ML PEN SUBQ SCH (08:50)
[2017-03-13] MEDS: LISINOPRIL 5 MG TAB PO SCH (08:51)
[2017-03-13] MEDS: POLYETHYLENE GLYCOL 17 GM PKT PO SCH (08:51)
[2017-03-13] MEDS: DOCUSATE SODIUM 100 MG CAP PO SCH ×2 (08:52→21:36)
[2017-03-13] MEDS: FUROSEMIDE 40 MG TAB PO SCH ×2 (08:52→14:37)
[2017-03-13] MEDS: ASPIRIN 81 MG ENTERIC COATED PO SCH (08:52)
[2017-03-13] MEDS: METOPROLOL SUCC XL 50 MG TABCR 50 MG TAB.ER.24H PO SCH ×2 (08:52→21:36)
[2017-03-13] MEDS: ISOSORBIDE MONONITR 30MG TABCR PO SCH (08:53)
[2017-03-13] MEDS: CARBIDOPA/LEVODOPA 25/250 TAB PO SCH ×3 (08:53→21:36)
[2017-03-13 16:15] VITALS: BP 127/69
[2017-03-13] MEDS: ATORVASTATIN 10 MG TAB PO SCH (21:36)
[2017-03-14] MEDS: LEVOTHYROXINE SOD 0.1 MG TAB PO SCH (06:29)
[2017-03-14 07:45] VITALS: BP 121/63
[2017-03-14] MEDS: NYSTATIN 100,000 U/GM PWD 15GM TP SCH ×2 (08:18→20:36)
[2017-03-14] MEDS: INSULIN GLARGINE 100 U/ML 3 ML PEN SUBQ SCH (08:19)
[2017-03-14] MEDS: LISINOPRIL 5 MG TAB PO SCH (08:20)
[2017-03-14] MEDS: FUROSEMIDE 40 MG TAB PO SCH ×2 (08:20→13:16)
[2017-03-14] MEDS: DOCUSATE SODIUM 100 MG CAP PO SCH ×2 (08:20→20:36)
[2017-03-14] MEDS: CARBIDOPA/LEVODOPA 25/250 TAB PO SCH ×3 (08:20→20:36)
[2017-03-14] MEDS: ENOXAPARIN 30 MG/0.3 ML SYR SC SCH (08:20)
[2017-03-14] MEDS: METOPROLOL SUCC XL 50 MG TABCR 50 MG TAB.ER.24H PO SCH ×2 (08:20→20:36)
[2017-03-14] MEDS: ISOSORBIDE MONONITR 30MG TABCR PO SCH (08:20)
[2017-03-14] MEDS: POLYETHYLENE GLYCOL 17 GM PKT PO SCH (08:21)
[2017-03-14] MEDS: ASPIRIN 81 MG ENTERIC COATED PO SCH (08:23)
[2017-03-14] MEDS: INSULIN HUM LISPRO 100 UN/ML 3 ML VIAL SUBQ PRN ×2 (12:24→17:06)
[2017-03-14 16:17] VITALS: BP 123/67
[2017-03-14] MEDS: ATORVASTATIN 10 MG TAB PO SCH (20:36)
[2017-03-15] MEDS: LEVOTHYROXINE SOD 0.1 MG TAB PO SCH (06:10)
[2017-03-15 08:06] VITALS: BP 159/58
[2017-03-15] MEDS: POLYETHYLENE GLYCOL 17 GM PKT PO SCH (08:49)
[2017-03-15] MEDS: FUROSEMIDE 40 MG TAB PO SCH ×2 (08:50→14:37)
[2017-03-15] MEDS: LISINOPRIL 5 MG TAB PO SCH (08:50)
[2017-03-15] MEDS: METOPROLOL SUCC XL 50 MG TABCR 50 MG TAB.ER.24H PO SCH ×2 (08:50→20:45)
[2017-03-15] MEDS: CARBIDOPA/LEVODOPA 25/250 TAB PO SCH ×3 (08:50→20:45)
[2017-03-15] MEDS: ASPIRIN 81 MG ENTERIC COATED PO SCH (08:50)
[2017-03-15] MEDS: INSULIN GLARGINE 100 U/ML 3 ML PEN SUBQ SCH (08:50)
[2017-03-15] MEDS: ISOSORBIDE MONONITR 30MG TABCR PO SCH (08:50)
[2017-03-15] MEDS: ENOXAPARIN 30 MG/0.3 ML SYR SC SCH (08:51)
[2017-03-15] MEDS: DOCUSATE SODIUM 100 MG CAP PO SCH ×2 (08:51→20:44)
[2017-03-15] MEDS: NYSTATIN 100,000 U/GM PWD 15GM TP SCH ×2 (08:51→20:43)
[2017-03-15] MEDS: INSULIN HUM LISPRO 100 UN/ML 3 ML VIAL SUBQ PRN ×2 (08:58→12:11)
--- NOTE | 2017-03-15 09:19 | Medical Nutrition Therapy ---
Nutrition Anthropometrics Height (Inches): 65.00 Height (Calculated Centimeters: 165.945947 Weight (Pounds): 185 Weight (Calculated Kilograms): 84.085 BMI Calculated: 31.28 Shekhar Nutrition Score: Adequate Shekhar Nutrition Risk Score: 16 Dietary Referral Nutrition Risk Factors: Nutrition Risk Comment: Physical Findings Physical Appearance: Obese BMI 30-39 Skin Appearance Skin Appearance: Edema Edema Location Modifier: Both Edema Location: Lower Extremity Type of Edema: Degree of Edema: 2+ Gastrointestinal Symptoms GI Symtoms: Tube Present: Bowel Sounds: Recent Bowel Pattern: Incontinent Stool Characteristics: Nutritional Diagnosis Nutritional Risk Acuity 2: CHF w/Complication Nutritional Risk Acuity 3: Fair Appetite, Alzheimer's Past Medical History: CHF, type 2 diabetes, HTN, hypothyroid, afib, parkinson's, CKD stage 3, CAD Nutritional Acuity: 2-Moderate Nutrition Diagnosis: Decreased Nutrient Needs Nutrition Etiology: Physiological Causes Nutrition Problem/Etiology/Sym: decreased Na and fluid needs r/t dx CHF AEB 1+ pitting edema LE Adjusted Energy Requirement Re: 1665 (M- St J) Protein Requirement: 85 (1gm/kg) Fluid Requirement: 2100 (25ml/kg) Diet Type: Diabetic Nutrition Intervention: Cont diet as ordered, Encourage intake, Between meal supplement Drug: Diuretics Drug/Nutrition Recommendations: Check Serum K+ Food Likes: 1/2 portions Food Dislikes: ice water Nutrition Monitoring & Eval RD Patient Assessment Time: [address] Assessment Type: RD Re-Assessment Patient Nutrition Acuity: 2-Moderate Follow Up Date: Mar 22, 2017 Nutritional Comment: 03/10 Pt admitted with CHF. Pt weighed 195# with 3+ pitting edema on 03/05 when admitted to medical unit. Edema has since declined to 1+ pitting edema with 10# wt loss. Anticipate cont wt loss until edema resolved. Pt is recieving K+ depleting duiretic. Recommend check K+ levels. Pt is on diabetic diet. BG mildly elevated up to 185. Pt is eating 50- 100% of meals. Will cont to monitor and encourage intake. 03/14 Pt continues on diabetic diet with average intakes 80% of small to reg portions. BG 127. Edema has increased up to 2+ pitting. No new wt available. Pt continues on lasix, no K+ lab available. No swallowing difficulty noted. Will continue to monitor weight, labs, intakes, etc. WOLF ALONSO Mar 14, 2017 11:00
[2017-03-15 16:50] VITALS: BP 131/63
[2017-03-15] MEDS: ATORVASTATIN 10 MG TAB PO SCH (20:44)
[2017-03-16] MEDS: LEVOTHYROXINE SOD 0.1 MG TAB PO SCH (06:32)
[2017-03-16 08:00] VITALS: BP 130/68
[2017-03-16] MEDS: NYSTATIN 100,000 U/GM PWD 15GM TP SCH ×2 (08:30→21:00)
[2017-03-16] MEDS: DOCUSATE SODIUM 100 MG CAP PO SCH ×2 (09:00→21:06)
[2017-03-16] MEDS: POLYETHYLENE GLYCOL 17 GM PKT PO SCH (09:08)
[2017-03-16] MEDS: ENOXAPARIN 30 MG/0.3 ML SYR SC SCH (09:09)
[2017-03-16] MEDS: ISOSORBIDE MONONITR 30MG TABCR PO SCH (09:09)
[2017-03-16] MEDS: FUROSEMIDE 40 MG TAB PO SCH ×2 (09:09→13:26)
[2017-03-16] MEDS: LISINOPRIL 5 MG TAB PO SCH (09:09)
[2017-03-16] MEDS: ASPIRIN 81 MG ENTERIC COATED PO SCH (09:09)
[2017-03-16] MEDS: CARBIDOPA/LEVODOPA 25/250 TAB PO SCH ×3 (09:09→21:05)
[2017-03-16] MEDS: METOPROLOL SUCC XL 50 MG TABCR 50 MG TAB.ER.24H PO SCH ×2 (09:10→21:05)
[2017-03-16] MEDS: INSULIN HUM LISPRO 100 UN/ML 3 ML VIAL SUBQ PRN ×2 (09:34→12:31)
[2017-03-16] MEDS: INSULIN GLARGINE 100 U/ML 3 ML PEN SUBQ SCH (09:34)
--- NOTE | 2017-03-16 14:35 | OT ECF NOTE ---
Type of Note: Discharge Note Primary Medical Diagnosis: Generalized weakness s/p COPD exacerbation Occupational Therapy Evaluation Date: 03/09/17 SUBJECTIVE: Prior Hospitalization: [facility] 03/04/17 thru 03/09/17 Prior Level of Function: Assist with all IADLs. Occasional assist with ADLs Prior Living Status: Assisted living Community Services: Home health care, No known needs Home Accessibility: All needs on one level Equipment Owned: Rollator Medical Complications/Past Medical History: CAD, Hyperlipidemia, hypothyroidism, Type II DM, CHF, A-Fib, Parkinson's disease, AK, PE, melanoma, pacemaker Psychosocial Support: Supportive Arya rebolledo Pain Scale (0-10): No reported at time of evaluation OBJECTIVE: Strength: MMT: Right Left Shoulder Flexion WFL WFL Elbow Flexion WFL WFL Wrist Extension WFL WFL [employer] Employee WFL WFL (5= normal, 4= good, 3= fair, 2= poor, 1= trace) ROM: Both upper extremities, Minimally limited Sensation: Intact, No concerns Functional Transfer: Assistive Device: 4WW Transfer Ability: SBA ADL: Upper body dressing: Assistive device: Upper body dressing ability: N/T Lower body dressing: Assistive device: Lower body dressing ability: Total assistance due to pt refusal to attempt (I)ly Toileting: Assistive device: Raised toilet seat, grab bars Toileting ability: SBA Grooming/hygiene: Assistive device: Grooming ability: Pt requests assist for all grooming. Adamantly refused to attempt (I)ly Bathing: Assistive device: Bathing ability: N/T Standardized Assessment: Melissa Index of Activities of Daily Livin20 at initial evaluation (03/09). 13/20 at discharge (03/16/17). ASSESSMENT: Olya presented to [facility] with generalized weakness requiring increased assist for ADLs and ambulation compared to PLOF. She has improved to SBA for all mobility and transfers. She is SBA toileting. She requests assist for all other ADLs. [facility] public service representative present at care conference meeting and agreeable that pt is safe to discharge to [facility] at current level of function. Problem List/Current Limitations: Decreased activity tolerance Decreased strength Generalized weakness Poor safety awareness Decreased problem solving Lack of motivation Short Term Goals: 1) Pt will be SBA grooming/hygiene. GOAL MET. Pt demonstrates good activity tolerance and safety awareness for grooming. 2) Pt will be Min A UB/LB dressing. GOAL NOT MET. pt refusing attempt to complete (I)ly. 3) Pt will be SBA toileting. GOAL MET. 4) Pt will be Min A shower task. GOAL NOT MET. Pt will have assist with bathing at [facility]. 5) Pt Melissa Index of ADLs score will increase by 2 points. GOAL MET Residential Goals: Return to [facility] with care services Patient Goals: Return home Rehabilitation Prognosis: Fair Barriers to Discharge: Motivation, Medical history PLAN: Discharge home to [facility] with services. Thank you for this referral. If you have any questions, concerns, or comments about this report or plan, please contact me at . Reyna Cat MS, OTR/L Occupational Therapist ANNI
[2017-03-16 17:00] VITALS: BP 110/71
[2017-03-16] MEDS: ATORVASTATIN 10 MG TAB PO SCH (21:06)
[2017-03-17] MEDS: LEVOTHYROXINE SOD 0.1 MG TAB PO SCH (06:00)
[2017-03-17 08:00] VITALS: BP 130/74
[2017-03-17] MEDS ORDERED: INSU100I30 SUBQ (08:28)
[2017-03-17] MEDS ORDERED: NYST15PO12 TP (08:28)
[2017-03-17] MEDS ORDERED: INSU100V24 SUBQ (08:28)
[2017-03-17] MEDS ORDERED: DOCU-202 PO (08:28)
[2017-03-17] MEDS ORDERED: FURO-47 PO (08:28)
[2017-03-17] MEDS ORDERED: MOM PO (08:28)
--- NOTE | 2017-03-17 08:41 | Hospitalist Depart ---
Discharge Summary Reason for Hosp/Final Diag: (1) Acute systolic CHF (congestive heart failure) Status: Acute Hospital Course & Plan: The patient presented with increased shortness of breath and edema. She was admitted to the medical floor. He last documented ejection fraction was noted to be 29% (01/2017). She had a persistnet right- sided pleural effusion and 1975cc of fluid were removed by thoracentesis. Evaluation showed a transudate that was felt to be due to her heart failure. She was intially treated with IV Lasix and then switched to oral Lasix. She was continued on lisinopril and metoprolol as well which were chronic medications for her. She worked with PT and OT. It was recommended she have further rehabilitation. She was transferred to [facility] on 03/09/17. On ECF she continued rehabilitation with PT and OT. She improved and was discharge on 03/17/17. (2) Fecal impaction Status: Acute Hospital Course & Plan: She was treated with laxatives and this resolved. She was placed on a bowel regimen. (3) CAD (coronary artery disease) Status: Chronic Hospital Course & Plan: She was continued on chronic treatment with aspirin, metoprolol and isosorbide. (4) Hypothyroidism Status: Chronic Hospital Course & Plan: She was continued on levothyroxine 100mcg daily. (5) Type II diabetes mellitus Status: Chronic Hospital Course & Plan: Her Lantus dose was decreased from 21 units bid to 15 units bid due to low blood sugars. She was also covered with sliding scale level 2. (6) Parkinson disease Status: Chronic Hospital Course & Plan: She was continued on Sinemet tid. (7) Paroxysmal atrial fibrillation Status: Chronic Hospital Course & Plan: She has a ventricular pacemaker and was fully paced by EKG. She was continued on chronic treatment with aspirin and metoprolol. Departure Weight (Pounds): 185 Weight (Ounces): 6.0 Item Value Date Time Whole Blood Glucose 133 mg/DL H 03/09/17 1613 Whole Blood Glucose 185 mg/DL H 03/09/172019 Whole Blood Glucose 83 mg/DL 03/10/17 0748 Whole Blood Glucose 145 mg/DL H 03/10/17 1138 Whole Blood Glucose 162 mg/DL H 03/10/17 162 Whole Blood Glucose 183 mg/DL H 1/11/18 2009 Whole Blood Glucose 155 mg/DL H 03/11/17 0751 Whole Blood Glucose 210 mg/DL H 03/11/17 1202 Whole Blood Glucose 137 mg/DL H 03/11/17 1618 Whole Blood Glucose 191 mg/DL H 03/11/17 2004 Whole Blood Glucose 164 mg/DL H 03/12/17 0743 Whole Blood Glucose 181 mg/DL H 03/12/17 1136 Whole Blood Glucose 216 mg/DL H 03/12/17 1640 Whole Blood Glucose 144 mg/DL H 03/12/17 2133 Whole Blood Glucose 156 mg/DL H 03/13/17 0744 Whole Blood Glucose 154 mg/DL H 03/13/17 1203 Whole Blood Glucose 123 mg/DL H 03/13/17 1637 Whole Blood Glucose 125 mg/DL H 03/13/17 2153 Whole Blood Glucose 127 mg/DL H 03/14/17 0752 Whole Blood Glucose 192 mg/DL H 03/14/17 1139 Whole Blood Glucose 160 mg/DL H 03/14/17 1640 Whole Blood Glucose 147 mg/DL H 03/14/17 2035 Whole Blood Glucose 166 mg/DL H 03/15/17 0742 Whole Blood Glucose 150 mg/DL H 03/15/17 1152 Whole Blood Glucose 149 mg/DL H 03/15/17 1643 Whole Blood Glucose 198 mg/DL H 03/15/17 2018 Whole Blood Glucose 161 mg/DL H 03/16/17 0726 Whole Blood Glucose 162 mg/DL H 03/16/17 1209 Whole Blood Glucose 113 mg/DL H 03/16/17 1633 Whole Blood Glucose 114 mg/DL H 03/16/17 2048 Whole Blood Glucose 81 mg/DL 03/17/17 0744 [facility] PATIENT NAME: Olya Menchaca : 1925 MR: [id number] V: [id number] EXAM DATE: ORDERING PHYSICIAN: CHE ROACH TECHNOLOGIST: Location: [facility] [place] Patient: Olya Menchaca : 1925 Visit/Account:[id number] Date of Sevice: 03/09/2017 Exam type: CHEST SINGLE AP History: CHF/right pleural effusion Comparison: March 06, 2017. Findings: There is been an increase in the small right pleural effusion.. Small left pleural effusion appears relatively unchanged. Mild interstitial prominence noted throughout the lungs in addition to cardiomegaly which may be secondary to pulmonary edema as the clinical history suggests. There suggestion of a left basilar airspace consolidation consistent with infiltrate and/or atelectasis. Dual lead cardiac pacemaker again noted IMPRESSION: 1. Slight increase in small right pleural effusion Small left pleural effusion unchanged Mild interstitial prominence of the lungs in addition to cardiomegaly which may be secondary to pulmonary edema as the clinical history suggests Suggestion of left basilar airspace consolidation consistent with infiltrate and /or atelectasis. Report Dictated By: Estefany Mane MD at 03/09/2017 11:20 AM Report E-Signed By: Estefany Mane MD at 03/09/2017 11:22 AM WSN:AMICIVN Condition: Improved Discharge: Assisted Living Time Spent: < 30 min Discharge Instructions Home Meds Active Scripts Lisinopril (LISINOPRIL) 5 Mg Tablet, 5 MG PO QDAY, #90 TAB 3 Refills Prov:JO-ANN SMITH MD 03/01/17 Furosemide (FUROSEMIDE) 40 Mg Tablet, 1 TAB PO BID, #180 TAB 0 Refills 80 mg tab po QAM 40 mg tab po at noon daily. Prov:JO-ANN SMITH MD 02/25/17 Isosorbide Mononitrate (ISOSORBIDE MONONITRATE ER) 60 Mg Tab.er.24h, 1 TAB PO DAILY, #90 TAB 0 Refills Prov:JO-ANN SMITH MD 02/23/17 Metoprolol Succinate (METOPROLOL SUCCINATE) 100 Mg Tab.er.24h, 1 TAB PO BID, # 180 TAB 1 Refill Prov:JO-ANN SMITH MD 02/14/17 Atorvastatin Calcium (ATORVASTATIN CALCIUM) 10 Mg Tablet, 1 TAB PO HS, #90 TAB 4 Refills Prov:JO-ANN SMITH MD 02/14/17 Levodopa/Carbidopa (CARBIDOPA-LEVODOPA 25-250 TAB) 1 Each Tab, 1 TAB PO TID, # 90 TAB 5 Refills Prov:JO-ANN SMITH MD 02/14/17 Alendronate Sodium (FOSAMAX) 70 Mg Tablet, 70 MG PO QWK, #12 TAB 4 Refills Prov:JO-ANN SMITH MD 10/15/16 Levothyroxine Sodium (LEVOTHYROXINE SODIUM) 100 Mcg Tablet, 1 TAB PO QDAY, #90 TAB 3 Refills Prov:JO-ANN SMITH MD 04/12/16 Aspirin (ASPIR 81) 81 Mg Tablet.dr, 81 MG PO QDAY, #90 TAB 4 Refills Prov:JO-ANN SMITH MD 03/31/16 Lancets (ONE TOUCH LANCETS) 1 Each Each, 1 EA MC 5XD, #100 12 Refills Test Glucose before Fasting each morning, before meals and HS. Length of need:99 months Prov:JO-ANN SMITH MD 03/15/16 [place], Insulin Disposable (PEN NEEDLES) 1 Each Dis.needle, 1 EACH MC QAM, #1 12 Refills Prov:JO-ANN SMITH MD 03/15/16 Blood Sugar Diagnostic (ONE TOUCH ULTRA TEST STRIPS) 1 Each Strip, 1 EACH MC 5XD , #100 STRIP 12 Refills Test Glucose before Fasting each morning, before meals and HS. Length of need:99 months Prov:JO-ANN SMITH MD 03/15/16 Cholecalciferol (Vitamin D3) (VITAMIN D3) 1,000 Unit Capsule, 1 CAP PO QDAY, # 90 CAPSULE 4 Refills Prov:JO-ANN SMITH MD 02/27/16 Reported Medications Lactose-Reduced Food (Ensure Original) 237 Ml Liquid, 1 BOTTLE PO TID 03/06/17 Mineral Oil/Petrolatum,White (Retaine Pm Eye Ointment) 5 Gm Oint...g., 1 LIZ OU HS 02/10/17 Polyethylene Glycol 3350 (MIRALAX) 17 Gm Powd.pack, 17 GM PO DAILY, PKT 02/10/17 Insulin Glargine (LANTUS) 100 Unit/Ml Soln, 21 UNIT SUBQ DAILY, ML 02/10/17 Oxygen (OXYGEN) Inha, 2 L INH, L 12/12/14 Magnesium Hydroxide (MILK OF MAGNESIA) 400 Mg/5 Ml Oral.susp, 400 MG PO PRN 10/05/13 Acetaminophen (TYLENOL) 325 Mg Tablet, 325-650 MG PO Q4H Y for PAIN 05/30/13 Follow up Referrals: Internal Medicine - In Two Weeks @ [facility]-Primary with Jo-Ann Smith Md Diet: Diabetic Activity: As Tolerated Special Instructions: 1. Continue diabetic, heart failure diet. 2. Follow up with Dr. Smith in about 2 weeks. Copies to: JO-ANN SMITH MD Venous Thromboembolism VTE Risk Physician Assess for VTE Risk: Yes Patient's VTE Risk: Low VTE Diagnostic Test 2 Days Prior to Admit: No Antithrombotics Is Pt On Any Antithrombotics?: Yes (Aspirin) Heart Failure NYHA Class: IV Is Patient on MALLORIE Inhibitor?: No Is Patient on Beta Corbin?: Yes JOVON ROACH MD Mar 17, 2017 08:41
[2017-03-17] MEDS: ISOSORBIDE MONONITR 30MG TABCR PO SCH (08:53)
[2017-03-17] MEDS: FUROSEMIDE 40 MG TAB PO SCH (08:53)
[2017-03-17] MEDS: ASPIRIN 81 MG ENTERIC COATED PO SCH (08:53)
[2017-03-17] MEDS: LISINOPRIL 5 MG TAB PO SCH (08:53)
[2017-03-17] MEDS: DOCUSATE SODIUM 100 MG CAP PO SCH (08:53)
[2017-03-17] MEDS: POLYETHYLENE GLYCOL 17 GM PKT PO SCH (08:53)
[2017-03-17] MEDS: METOPROLOL SUCC XL 50 MG TABCR 50 MG TAB.ER.24H PO SCH (08:53)
[2017-03-17] MEDS: CARBIDOPA/LEVODOPA 25/250 TAB PO SCH (08:54)
[2017-03-17] MEDS: NYSTATIN 100,000 U/GM PWD 15GM TP SCH (09:00)
[2017-03-17] MEDS ORDERED: PNEUMOCOC VAC POLY 25MCG/0.5ML IM ONLY ONE (09:10)
[2017-03-17] MEDS: ENOXAPARIN 30 MG/0.3 ML SYR SC SCH (09:56)
[2017-03-17] MEDS: INSULIN GLARGINE 100 U/ML 3 ML PEN SUBQ SCH (09:57)
--- NOTE | 2017-03-17 13:30 | PT ECF NOTE ---
Type of Note: Discharge Summary Primary Medical Diagnosis: Acute systolic heart failure, weakness Physical Therapy Discharge\ Date: 03/17/17 SUBJECTIVE: Prior Hospitalization: [facility] 03/04/17-03/09/17 Prior Level of Function: Randy with use of 4WW, staff at [facility] provided w/c follow with ambulation to dining prior to admit to [facility] Prior Living Status: Assisted living Community Services: Support adequate, Home health [facility] Accessibility: Elevator Equipment Owned: Rollator Medical Complications/Past Medical History: See EMR Psychosocial Support: Supportive son and family Pain Scale (0-10): None reported OBJECTIVE: Strength: Right Lower Extremity: DF: 4/5 Knee flexion: 4/5 Knee extension: 4/5 Hip flexion: <3/5 Left Lower Extremity: DF: 4/5 Knee flexion: 4/5 Knee extension: 4/5 Hip flexion: <3/5 ROM: WFL Sensation: No abnormalities noted Other Neuro findings: None noted Bed Mobility: Pt requests Ratna for bed mobility Transfers: SBA with 4WW Gait: SBA x200' with 4WW Stairs: NT Timed Up and Go (>12 seconds indicated increased risk for falls): 41 seconds ASSESSMENT: Pt appears to be at baseline level of functional mobility and is safe to d/c to [facility] from a mobility stand point. PT instruction for transfer to seated position in 4WW for seated rest break with ambulation, pt demonstrates good safety with parking 4WW against wall prior to sitting. She also demonstrate improved tolerance to prolonged ambulation which will allow her to safely ambulate to/from meals at [facility]. Rec HHC at d/c Problem List/Current Limitations: Decreased activity tegan Decreased strength Decreased balance Generalized weakness Decreased problem solving Short Term Goals: 1: Pt to complete bed mobility with SBA (pt requested assistance, not met) 2: Pt to complete transfers with SBA and least restrictive AD (met) 3: Pt to ambulate 3x50' with SBA and least restrictive AD, with w/c follow to allow for seated rest breaks and simulate home environment. (met) 4: Pt to improve TUG times to less than 3 minutes 45 seconds to indicate an improvement in function (met) Correction Goals: Pt to return to [facility] with increased independence (met) Patient Goals: Return to [facility] PLAN: The patient will discharge to [facility] with prior level of care and [facility] services Thank you for this referral. If you have any questions, concerns, or comments about this report or plan, please contact me at . Gaby Laurent, PT, DPT ANNI
[2017-03-18] MEDS ORDERED: LEVO-3 PO (17:07)
== END 2017-03-17 11:56 | disposition home or self-care (01) | DRG 293 ==
LOC: ECF 14:05
PROVIDERS: ADMIT Internal Medicine; ATTEND Internal Medicine
DX: I11.0 Hypertensive heart disease with heart failure (principal); I50.23 Acute on chronic systolic (congestive) heart failure; I25.10 Atherosclerotic heart disease of native coronary artery without angina pectoris; E11.9 Type 2 diabetes mellitus without complications; I48.0 Paroxysmal atrial fibrillation; E78.5 Hyperlipidemia, unspecified; E03.9 Hypothyroidism, unspecified; G20 Parkinson's disease; I34.0 Nonrheumatic mitral (valve) insufficiency; I25.2 Old myocardial infarction; Z95.0 Presence of cardiac pacemaker; Z85.820 Personal history of malignant melanoma of skin; Z90.710 Acquired absence of both cervix and uterus; Z79.4 Long term (current) use of insulin; Z88.8 Allergy status to other drugs, medicaments and biological substances; Z23 Encounter for immunization
CPT/HCPCS: 36416; 82948; 90471; 90732; 97161; 97165; J1650; J1815

== ENCOUNTER → 2017-03-24 | Outpatient (CLI) | payer MEDICARE, MEDICAID ==
[2017-03-05 10:53] VITALS: BMI 31.3
[~2017-03-24] MED LIST changes: +INSU100I30 SUBQ; +INSU100V24 SUBQ; +NYST15PO12 TP
--- NOTE | 2017-03-24 16:35 | RADIOLOGY IMAGING REPORT ---
FACILITY: [facility] [place] PATIENT NAME: Olya Menchaca : 1925 MR: [id number] V: [id number] EXAM DATE: ORDERING PHYSICIAN: SARAH WILSON TECHNOLOGIST: Location: [facility] Patient: Olya Menchaca : 1925 Visit/Account:[id number] Date of Sevice: 03/24/2017 Chest 2 views: HISTORY: Bilateral pleural effusion. COMPARISON: 03/09/2017 FINDINGS: Frontal and lateral chest: Heart appears enlarged and there is prominence of central vascul ature. Right pleural effusion has increased in size. There is likely underlying atelectasis and/or infiltrate. Small left pleural effusion persists and there is patchy left basilar opacity, likely at electasis.. There is no pneumothorax. Transvenous pacer leads are unchanged. Atherosclerotic changes are present in the aorta. Right apical pleural calcification noted. IMPRESSION: 1. Findings consistent with congestive heart failure or volume overload. 2. Interval increase in size of right pleural effusion, left is probably unchanged. There is likely underlying atelectasis. Report Dictated By: Adrienne Christopher MD at 03/24/2017 4:29 PM Report E-Signed By: Adrienne Christopher MD at 03/24/2017 4:31 PM WSN:[email or web address]
== END ==
LOC: RAD 15:19
PROVIDERS: ATTEND Emergency Medicine
DX: J90 Pleural effusion, not elsewhere classified (principal)
CPT/HCPCS: 71046

== ENCOUNTER → 2017-03-25 | Outpatient (CLI) | payer MEDICARE, MEDICAID ==
[2017-03-05 10:53] VITALS: BMI 31.3
== END ==
LOC: LAB 14:11
PROVIDERS: ATTEND Emergency Medicine
DX: I50.21 Acute systolic (congestive) heart failure (principal); E11.9 Type 2 diabetes mellitus without complications
CPT/HCPCS: 36415; 82310; 82374; 82435; 82565; 82947; 84132; 84295; 84520

== ENCOUNTER → 2017-04-05 | Outpatient (CLI) | payer MEDICARE, MEDICAID ==
[2017-03-05 10:53] VITALS: BMI 31.3
== END ==
LOC: ZZSPRING 02:03
PROVIDERS: ATTEND Emergency Medicine
DX: I50.21 Acute systolic (congestive) heart failure (principal)
CPT/HCPCS: 36415; 82310; 82374; 82435; 82565; 82947; 83880; 84132; 84295; 84520

== ENCOUNTER → 2017-05-04 | Outpatient (CLI) | payer MEDICARE, MEDICAID ==
[2017-03-05 10:53] VITALS: BMI 31.3
== END ==
LOC: LAB 11:09
PROVIDERS: ATTEND Emergency Medicine
DX: R06.00 Dyspnea, unspecified (principal); E11.9 Type 2 diabetes mellitus without complications
CPT/HCPCS: 36415; 82310; 82374; 82435; 82565; 82947; 83036; 83880; 84132; 84295; 84520

== ENCOUNTER → 2017-05-17 | Outpatient (CLI) | payer MEDICARE, MEDICAID ==
[2017-03-05 10:53] VITALS: BMI 31.3
== END ==
LOC: ZZSPRING 05-16 08:11
PROVIDERS: ATTEND Emergency Medicine
DX: I50.22 Chronic systolic (congestive) heart failure (principal)
CPT/HCPCS: 36415; 82310; 82374; 82435; 82565; 82947; 83880; 84132; 84295; 84520

== ENCOUNTER → 2017-05-31 | Outpatient (CLI) | payer MEDICARE, MEDICAID ==
[2017-03-05 10:53] VITALS: BMI 31.3
== END ==
LOC: ZZSPRING 02:44
PROVIDERS: ATTEND Emergency Medicine
DX: R63.5 Abnormal weight gain (principal)
CPT/HCPCS: 36415; 82310; 82374; 82435; 82565; 82947; 83880; 84132; 84295; 84520

== ENCOUNTER → 2017-06-02 | Outpatient (REF) | payer MEDICARE, MEDICAID ==
[2017-03-05 10:53] VITALS: BMI 31.3
== END ==
LOC: ZZSPRING 10:51
PROVIDERS: ATTEND Emergency Medicine
DX: R19.5 Other fecal abnormalities (principal)
CPT/HCPCS: 82274

== ENCOUNTER 2017-06-07 12:22 | Inpatient (IN) | payer MEDICARE, MEDICAID ==
[~2017-06-07] VITALS: Ht 162.6 cm; Wt 85.8 kg
[~2017-06-07 12:22] MED LIST changes: -FERR-53 PO; -MORP100S32 PO
--- NOTE | 2017-06-07 12:30 | ER Report ---
History and Physical Time Seen By MD: 12:29 HPI/ROS CHIEF COMPLAINT: Abnormal labs; send in HISTORY OF PRESENT ILLNESS:Patient is an 89-year-old female who was sent from [facility] for worsening shortness of breath as well as weight gain. Patient has a history of congestive heart failure and had echocardiogram that showed ejection fraction of 29% in January 2017. She is had admissions to the hospital for similar episodes where she is even had to have thoracentesis to remove large pleural effusions. These were thought to be related to her congestive heart failure. Nursing staff notes increasing brain natretic peptide over the past week. As well as slightly elevating BUN to creatinine ratio. Patient does have a pulsed form is filled out according to the electronic medical record and wishes to be DO NOT RESUSCITATE. Patient does wear 2 L of oxygen at nighttime but lately she has had increasing O2 requirement. Patient has baseline confusion. She is not the best historian. REVIEW OF SYSTEMS: Constitutional: No fever, no chills. Eyes: No discharge. ENT: No sore throat. Cardiovascular: No chest pain, no palpitations. Respiratory: Shortness of breath, no cough Gastrointestinal: No abdominal pain, no vomiting. Genitourinary: No hematuria. Musculoskeletal: No back pain. Bilateral lower extremity edema Skin: No rashes. Neurological: No headache. Allergies: Coded Allergies: sulfamethoxazole (Verified Allergy, Mild, 06/07/17) trimethoprim (Verified Allergy, Mild, 06/07/17) Home Meds Active Scripts Furosemide (FUROSEMIDE) 40 Mg Tablet, 40 MG PO DAILY, #90 TAB 3 Refills Prov:SARAH WILSON MD 06/01/17 Polyethylene Glycol 3350 (MIRALAX) 17 Gm Powd.pack, 17 GM PO DAILY, #30 PKT 11 Refills Prov:SARAH WILSON MD 05/30/17 Blood Sugar Diagnostic (ONE TOUCH ULTRA TEST STRIPS) 1 Each Strip, 1 EACH MC BID , #200 STRIP 3 Refills Prov:SARAH WILSON MD 05/17/17 Isosorbide Mononitrate (ISOSORBIDE MONONITRATE ER) 60 Mg Tab.er.24h, 1 TAB PO DAILY, #90 TAB 3 Refills Prov:SARAH WILSON MD 04/01/17 Spironolactone (SPIRONOLACTONE) 25 Mg Tablet, 1 TAB PO DAILY, #30 TAB 11 Refills Prov:SARAH WILSON MD 03/25/17 Levothyroxine Sodium (LEVOTHYROXINE SODIUM) 100 Mcg Tablet, 1 TAB PO QDAY, #90 TAB 4 Refills Prov:SARAH WILSON MD 03/18/17 Nystatin (NYAMYC) 15 Gm Powder, 0 GM TP BID, #1 BOTTLE Prov:JOVON PATTERSON MD 03/17/17 Magnesium Hydroxide (MILK OF MAGNESIA) 400 Mg/5 Ml Oral.susp, 30 ML PO QDAY Y for CONSTIPATION, #30 UNITS Prov:JOVON PATTERSON MD 03/17/17 Insulin Lispro 100 Un/Ml Vial (HUMALOG 100 U/ML VIAL) 100 Unit/1 Ml Vial, 2-10 UNIT SUBQ SS Y for SLIDING SCALE INSULIN, #1 VIAL Prov:JOVON PATTERSON MD 03/17/17 Insulin Glargine 100 Un/Ml Pen (LANTUS SOLOSTAR PEN) 100 Unit/1 Ml Insuln.pen, 15 UNIT SUBQ DAILY, #1 BOX Prov:JOVON PATTERSON MD 03/17/17 Docusate Sodium (DOCUSATE SODIUM) 100 Mg Capsule, 100 MG PO BID, #60 CAPSULE Prov:JOVON PATTERSON MD 03/17/17 Lisinopril (LISINOPRIL) 5 Mg Tablet, 5 MG PO QDAY, #90 TAB 3 Refills Prov:SARAH WILSON MD 03/01/17 Metoprolol Succinate (METOPROLOL SUCCINATE) 100 Mg Tab.er.24h, 1 TAB PO BID, # 180 TAB 1 Refill Prov:SARAH WILSON MD 02/14/17 Atorvastatin Calcium (ATORVASTATIN CALCIUM) 10 Mg Tablet, 1 TAB PO HS, #90 TAB 4 Refills Prov:SARAH WILSON MD 02/14/17 Levodopa/Carbidopa (CARBIDOPA-LEVODOPA 25-250 TAB) 1 Each Tab, 1 TAB PO TID, # 90 TAB 5 Refills Prov:SARAH WILSON MD 02/14/17 Alendronate Sodium (FOSAMAX) 70 Mg Tablet, 70 MG PO QWK, #12 TAB 4 Refills Prov:SARAH WILSON MD 10/15/16 Aspirin (ASPIR 81) 81 Mg Tablet.dr, 81 MG PO QDAY, #90 TAB 4 Refills Prov:SARAH WILSON MD 03/31/16 Lancets (ONE TOUCH LANCETS) 1 Each Each, 1 EA 5XD, #100 12 Refills Test Glucose before Fasting each morning, before meals and HS. Length of need:99 months Prov:SARAH WILSON MD 03/15/16 Leiter, Insulin Disposable (PEN NEEDLES) 1 Each Dis.needle, 1 EACH QAM, #1 12 Refills Prov:SARAH WILSON MD 03/15/16 Cholecalciferol (Vitamin D3) (VITAMIN D3) 1,000 Unit Capsule, 1 CAP PO QDAY, # 90 CAPSULE 4 Refills Prov:SARAH WILSON MD 02/27/16 Reported Medications Ferrous Sulfate (FERROUS SULFATE) 325 Mg Tablet, 325 MG PO DAILY 06/07/17 Lactose-Reduced Food (Ensure Original) 237 Ml Liquid, 1 BOTTLE PO TID 03/06/17 Mineral Oil/Petrolatum,White (Retaine Pm Eye Ointment) 5 Gm Oint...g., 1 LIZ OU HS 03/03-03/07 in strip Q HS 02/10/17 Oxygen (OXYGEN) Inha, 2 L INH, L 12/12/14 Acetaminophen (TYLENOL) 325 Mg Tablet, 325-650 MG PO Q4H Y for PAIN 05/30/13 Discontinued Reported Medications Magnesium Hydroxide (MILK OF MAGNESIA) 400 Mg/5 Ml Oral.susp, 400 MG PO PRN 10/05/13 Discontinued Scripts Furosemide (FUROSEMIDE) 40 Mg Tablet, 40 MG PO DAILY, #60 TAB Prov:SARAH WILSON MD 05/04/17 Past Medical/Surgical History Past medical history for Parkinson's disease, history of TIA, history of atrial fibrillation and pacemaker placement. History of CHF with ejection fracture 29% . History of hyperlipidemia, hypertension. History of multiple urinary tract infections. History of type II diabetes, history of hypothyroidism, history of GI bleed on warfarin with transfusion. She is status post hysterectomy and oophorectomy Hx Smoking: No Smoking Status: Never Smoker Exposure to Second Hand Smoke?: No Hx Substance Use Disorder: No Hx Alcohol Use: No Constitutional Vital Sign - Last 24 Hours 06/07/17 06/07/17 06/07/17 06/07/17 12:29 12:30 12:50 13:00 Temp 97.5 Pulse 57 Resp 16 B/P (MAP) 113/69 113/69 (84) 87/74 (78) Pulse Ox 90 O2 Delivery Nasal Cannula O2 Flow Rate 2.0 06/07/17 06/07/17 06/07/17 06/07/17 13:07 13:12 13:27 13:30 Pulse 59 60 60 Resp 44 17 16 B/P (MAP) ???/??? (6945) Pulse Ox 100 100 100 06/07/17 06/07/17 06/07/17 06/07/17 13:42 13:48 13:57 14:00 Pulse ??? 60 Resp 21 B/P (MAP) 101/69 (80) 119/77 (91) Pulse Ox 100 06/07/17 14:12 Pulse 60 Resp 26 Pulse Ox 100 Physical Exam General Appearance: The patient is alert, has no immediate need for airway protection and no signs of toxicity. Eyes: Pupils equal and round no pallor or injection. ENT, Mouth: Mucous membranes are moist. Respiratory: There are no retractions, lungs are clear to auscultation. Cardiovascular: Distant heart sounds heart is regular Gastrointestinal: Abdomen is soft and non tender, no masses, bowel sounds normal. Neurological: Awake alert baseline confusion Skin: Warm and dry, no rashes. Musculoskeletal: Neck is supple non tender. Bilateral lower extremity edema Medical Decision Making Data Points Result Diagram: 06/08/17 0532 06/08/17 0532 Laboratory Hematology Test 06/07/17 13:03 06/07/17 13:12 Urine Color Yellow Urine Clarity Clear Urine pH 5.0 pH (4.8-9.5) Urine Specific Thorp 1.010 Urine Protein Negative mg/dL (NEGATIVE) Urine Glucose (UA) Negative mg/dL (NEGATIVE) Urine Ketones Trace mg/dL (NEGATIVE) Urine Blood Negative (NEGATIVE) Urine Nitrite Positive (NEGATIVE) Urine Bilirubin Negative (NEGATIVE) Urine Urobilinogen Negative mg/dL (0.2-1.9) Urine Leukocyte Esterase Negative (NEGATIVE) Urine RBC None /HPF (0-2/HPF) Urine WBC 1 /HPF (0-5/HPF) Urine Squamous Epithelial Cells Few /LPF (NONE-FEW) Urine Bacteria Few /HPF (NONE-FEW) Urine Hyaline Casts Moderate /LPF (NONE-FEW) Urine Mucus None /HPF (NONE-FEW) Prothrombin Time 13.4 seconds (12.0-14.4) Prothromb Time International Ratio 1.02 Activated Partial Thromboplast Time 29 seconds (23-35) B-Type Natriuretic Peptide 1440 pg/ml (0-100) Thyroid Stimulating Hormone (TSH) 2.34 uIU/ml (0.46-4.68) Chemistry Test 06/07/17 13:03 06/07/17 13:12 Urine Color Yellow Urine Clarity Clear Urine pH 5.0 pH (4.8-9.5) Urine Specific Thorp 1.010 Urine Protein Negative mg/dL (NEGATIVE) Urine Glucose (UA) Negative mg/dL (NEGATIVE) Urine Ketones Trace mg/dL (NEGATIVE) Urine Blood Negative (NEGATIVE) Urine Nitrite Positive (NEGATIVE) Urine Bilirubin Negative (NEGATIVE) Urine Urobilinogen Negative mg/dL (0.2-1.9) Urine Leukocyte Esterase Negative (NEGATIVE) Urine RBC None /HPF (0-2/HPF) Urine WBC 1 /HPF (0-5/HPF) Urine Squamous Epithelial Cells Few /LPF (NONE-FEW) Urine Bacteria Few /HPF (NONE-FEW) Urine Hyaline Casts Moderate /LPF (NONE-FEW) Urine Mucus None /HPF (NONE-FEW) Prothrombin Time 13.4 seconds (12.0-14.4) Prothromb Time International Ratio 1.02 Activated Partial Thromboplast Time 29 seconds (23-35) B-Type Natriuretic Peptide 1440 pg/ml (0-100) Thyroid Stimulating Hormone (TSH) 2.34 uIU/ml (0.46-4.68) Coagulation Test 06/07/17 13:12 Prothrombin Time 13.4 seconds Prothromb Time International Ratio 1.02 Activated Partial Thromboplast Time 29 seconds Urinalysis Test 06/07/17 13:03 Urine Color Yellow Urine Clarity Clear Urine pH 5.0 pH (4.8-9.5) Urine Specific Thorp 1.010 Urine Protein Negative mg/dL (NEGATIVE) Urine Glucose (UA) Negative mg/dL (NEGATIVE) Urine Ketones Trace mg/dL (NEGATIVE) Urine Blood Negative (NEGATIVE) Urine Nitrite Positive (NEGATIVE) Urine Bilirubin Negative (NEGATIVE) Urine Urobilinogen Negative mg/dL (0.2-1.9) Urine Leukocyte Esterase Negative (NEGATIVE) Urine RBC None /HPF (0-2/HPF) Urine WBC 1 /HPF (0-5/HPF) Urine Squamous Epithelial Cells Few /LPF (NONE-FEW) Urine Bacteria Few /HPF (NONE-FEW) Urine Hyaline Casts Moderate /LPF (NONE-FEW) Urine Mucus None /HPF (NONE-FEW) Microbiology Microbiology Date/Time Source Procedure Growth Status 06/07/17 13:03 [place] Catheter Urine Urine Culture - Preliminary Gram Negative Stan Resulted EKG/Imaging EKG Interpretation EKG shows electronic ventricular pacemaker with a rate of 60 bpm Monitor Interpretation: Other (paced rhythm) Imaging [place] [facility] [place] NAME: Olya Menchaca : 1925 MR: [id number] V: [id number] EXAM DATE: [id number] ORDERING PHYSICIAN: SANTA MONROY TECHNOLOGIST: Location: [facility] Patient: Olya Menchaca : 1925 Visit/Account:[id number] Date of Sevice: 06/07/2017 Exam type: CHEST PA AND LAT History: Chest Pain Comparison: March 24, 2017. Findings: Bilateral pleural effusions right greater than left appear relatively unchanged. Small amount of by basilar airspace consolidation also appears similar to the prior study. There is prominence of the right vascularity. The cardiac silhouette remains stable. Dual lead cardiac pacemaker again seen. There is marked ectasia the thoracic aorta and marked spondylotic changes of the thoracic spine IMPRESSION: 1. Bilateral pleural effusions right greater than left and bibasilar airspace consolidation appears relatively unchanged when compared the prior study Prominent pulmonary vascularity also again noted may be related to interstitial pulmonary edema. Report Dictated By: Estefany Mane MD at 06/07/2017 1:56 PM Report E-Signed By: Estefany Mane MD at 06/07/2017 1:58 PM WSN:[email or web address] ED Course/Re-evaluation Clinical Indication for ER IV: IV Access ED Course 06/07/2017 1:59:07 pm patient found to have elevated troponin at 0.7 along with BNP at 1400. The patient probably in the last few days has had a heart attack that has worsened her heart failure. She now looks as if she has a pleural effusion on the right hand side. That has increased in size since drainage in February 2017. Patient has no wish for any face procedure such as a cardiac catheterization. This is reflected in the pulse perform that was provided. I did discuss the findings with the patient and her grandson who is present. Explained that she has urinary tract infection which we are treating but also that she may have had a heart attack which may have caused some worsening failure and buildup of fluid. Discussed options they would prefer admission for some diuresis and perhaps thought of a thoracentesis to drain the pleural effusion to help her breathe. I discussed the case with Dr. Patterson who is agreed to accept patient at this time. We discussed the possibility of starting anticoagulants other than aspirin which the patient is started received. We will hold on any further anticoagulations at this time patient has had a history of acute blood loss anemia from GI bleed secondary to Coumadin and aspirin. Decision to Disposition Date: Jun 07, 2017 Decision to Disposition Time: 14:05 Depart Departure Latest Vital Signs Vital Signs Date Time Temp Pulse Resp B/P (MAP) Pulse Ox O2 Delivery O2 Flow Rate FiO2 06/07/17 14:12 60 26 100 06/07/17 14:00 119/77 (91) 06/07/17 12:50 2.0 06/07/17 12:29 97.5 Nasal Cannula Impression: Primary Impression: Acute systolic CHF (congestive heart failure) Additional Impression: UTI (urinary tract infection) Referrals: SARAH WILSON MD (PCP) Problem Qualifiers Additional Impression: UTI (urinary tract infection) Urinary tract infection type: acute cystitis Hematuria presence: without hematuria Qualified Codes: N30.00 - Acute cystitis without hematuria SANTA MONROY MD Jun 07, 2017 12:30
--- NOTE | 2017-06-07 12:46 | EKG ---
[facility] PATIENT NAME: PHILL MCHUGH : [id number] MR: [id number] V: [id number] EXAM DATE: ORDERING PHYSICIAN: SANTA MONROY TECHNOLOGIST: Test Reason : Blood Pressure : / mmHG Vent. Rate : 060 BPM Atrial Rate : 060 BPM P-R Int : 000 ms QRS Dur : 182 ms QT Int : 500 ms P-R-T Axes : 000 -78 119 degrees QTc Int : 500 ms Electronic ventricular pacemaker When compared with ECG of 01-FEB-2017 12:46, No significant change was found Confirmed by CHE ROACH ([id number]) on 06/07/2017 5:28:01 PM Referred By: Confirmed By:CHE ROACH
[2017-06-07] MEDS ORDERED: FUROSEMIDE 20 MG/2 ML VIAL IVP ONE (12:55)
[2017-06-07 13:27] LABS: PLATELET COUNT, AUTOMATED 129 K/uL (150-450)
[2017-06-07 13:34] LABS: INR 1.02
[2017-06-07] MEDS ORDERED: cefTRIAXone 1 GM VIAL IVP ONE (13:35)
--- NOTE | 2017-06-07 14:02 | RADIOLOGY IMAGING REPORT ---
FACILITY: [facility] - [place] PATIENT NAME: Olya Menchaca : 1925 MR: [id number] V: [id number] EXAM DATE: ORDERING PHYSICIAN: SANTA MONROY TECHNOLOGIST: Location: [facility] Patient: Olya Menchaca : 1925 Visit/Account:[id number] Date of Sevice: 06/07/2017 Exam type: CHEST PA AND LAT History: Chest Pain Comparison: March 24, 2017. Findings: Bilateral pleural effusions right greater than left appear relatively unchanged. Small amount of by basilar airspace consolidation also appears similar to the prior study. There is prominence of the r ight vascularity. The cardiac silhouette remains stable. Dual lead cardiac pacemaker again seen. T here is marked ectasia the thoracic aorta and marked spondylotic changes of the thoracic spine IMPRESSION: 1. Bilateral pleural effusions right greater than left and bibasilar airspace consolidation appears relatively unchanged when compared the prior study Prominent pulmonary vascularity also again noted may be related to interstitial pulmonary edema. Report Dictated By: Estefany Mane MD at 06/07/2017 1:56 PM Report E-Signed By: Estefany Mane MD at 06/07/2017 1:58 PM WSN:[email or web address]
[2017-06-07 14:45] VITALS: BP 115/100
[2017-06-07] MEDS ORDERED: INSULIN HUM LISPRO 100 UN/ML 3 ML VIAL SUBQ PRN (15:00)
[2017-06-07] MEDS ORDERED: FLUSH 10 ML SYR IVP PRN (15:00)
[2017-06-07] MEDS ORDERED: PANTOPRAZOLE SOD 40 MG TABEC PO ONE (15:15)
[2017-06-07] MEDS ORDERED: ASPIRIN 325 MG TAB PO ONE (15:15)
--- NOTE | 2017-06-07 15:43 | History & Physical ---
History of Present Illness Chief Complaint Short of breath History of Present Illness 89yo female with PMHx significant for systolic heart failure (EF 29% on echo 2016). She reports increasing dyspnea with episodes of chest discomfort and associated dyspnea as well as orthopnea (requiring her to sleep in her recliner) . She denies any fevers or chills. No significant sputum production. She has chronic edema in her lower extremities. She was evaluated in the ER and found to have bilateral pleural effusions on CXR as well as elevated BNP and troponin. Her EKG shows ventricular pacemaker without change. She was recommended for admission. History Problems: (1) Hyperlipidemia Status: Chronic (2) Hypothyroidism Status: Chronic (3) Transient cerebral ischemia Status: Resolved (4) Sensorineural hearing loss Status: Chronic (5) Hypertension, benign Status: Chronic (6) Type II diabetes mellitus Status: Chronic (7) Chronic systolic CHF (congestive heart failure), NYHA class 4 Status: Chronic (8) Parkinson disease Status: Chronic (9) Mitral regurgitation Status: Chronic (10) Paroxysmal atrial fibrillation Status: Chronic (11) Bilateral pleural effusion Status: Chronic (12) Esophageal spasm Status: Chronic (13) Thrombocytopenia Status: Chronic (14) Non-ST elevation (NSTEMI) myocardial infarction Status: Resolved (15) Seroma of breast Status: Chronic (16) Pulmonary embolism Status: Chronic (17) CKD (chronic kidney disease) stage 3, GFR 30-59 ml/min Status: Chronic (18) History of GI bleed Status: Chronic (19) Bilateral lower extremity edema Status: Chronic (20) UTI (urinary tract infection) Status: Acute (21) CAD (coronary artery disease) Status: Chronic (22) Melanoma of left upper arm Status: Resolved (23) Pacemaker Status: Chronic Home Meds Active Scripts Furosemide (FUROSEMIDE) 40 Mg Tablet, 40 MG PO DAILY, #90 TAB 3 Refills Prov:SARAH WILSON MD 06/01/17 Polyethylene Glycol 3350 (MIRALAX) 17 Gm Powd.pack, 17 GM PO DAILY, #30 PKT 11 Refills Prov:SARAH WILSON MD 05/30/17 Blood Sugar Diagnostic (ONE TOUCH ULTRA TEST STRIPS) 1 Each Strip, 1 EACH MC BID , #200 STRIP 3 Refills Prov:SARAH WILSON MD 05/17/17 Isosorbide Mononitrate (ISOSORBIDE MONONITRATE ER) 60 Mg Tab.er.24h, 1 TAB PO DAILY, #90 TAB 3 Refills Prov:SARAH WILSON MD 04/01/17 Spironolactone (SPIRONOLACTONE) 25 Mg Tablet, 1 TAB PO DAILY, #30 TAB 11 Refills Prov:SARAH WILSON MD 03/25/17 Levothyroxine Sodium (LEVOTHYROXINE SODIUM) 100 Mcg Tablet, 1 TAB PO QDAY, #90 TAB 4 Refills Prov:SARAH WILSON MD 03/18/17 Nystatin (NYAMYC) 15 Gm Powder, 0 GM TP BID, #1 BOTTLE Prov:JOVON ROACH MD 03/17/17 Magnesium Hydroxide (MILK OF MAGNESIA) 400 Mg/5 Ml Oral.susp, 30 ML PO QDAY Y for CONSTIPATION, #30 UNITS Prov:JOVON ROACH MD 03/17/17 Insulin Lispro 100 Un/Ml Vial (HUMALOG 100 U/ML VIAL) 100 Unit/1 Ml Vial, 2-10 UNIT SUBQ SS Y for SLIDING SCALE INSULIN, #1 VIAL Prov:JOVON ROACH MD 03/17/17 Insulin Glargine 100 Un/Ml Pen (LANTUS SOLOSTAR PEN) 100 Unit/1 Ml Insuln.pen, 15 UNIT SUBQ DAILY, #1 BOX Prov:JOVON ROACH MD 03/17/17 Docusate Sodium (DOCUSATE SODIUM) 100 Mg Capsule, 100 MG PO BID, #60 CAPSULE Prov:JOVON ROACH MD 03/17/17 Lisinopril (LISINOPRIL) 5 Mg Tablet, 5 MG PO QDAY, #90 TAB 3 Refills Prov:SARAH WILSON MD 03/01/17 Metoprolol Succinate (METOPROLOL SUCCINATE) 100 Mg Tab.er.24h, 1 TAB PO BID, # 180 TAB 1 Refill Prov:SARAH WILSON MD 02/14/17 Atorvastatin Calcium (ATORVASTATIN CALCIUM) 10 Mg Tablet, 1 TAB PO HS, #90 TAB 4 Refills Prov:SARAH WILSON MD 02/14/17 Levodopa/Carbidopa (CARBIDOPA-LEVODOPA 25-250 TAB) 1 Each Tab, 1 TAB PO TID, # 90 TAB 5 Refills Prov:SARAH WILSON MD 02/14/17 Alendronate Sodium (FOSAMAX) 70 Mg Tablet, 70 MG PO QWK, #12 TAB 4 Refills Prov:SARAH WILSON MD 10/15/16 Aspirin (ASPIR 81) 81 Mg Tablet.dr, 81 MG PO QDAY, #90 TAB 4 Refills Prov:SARAH WILSON MD 03/31/16 Lancets (ONE TOUCH LANCETS) 1 Each Each, 1 EA MC 5XD, #100 12 Refills Test Glucose before Fasting each morning, before meals and HS. Length of need:99 months Prov:SARAH WILSON MD 03/15/16 [place], Insulin Disposable (PEN NEEDLES) 1 Each Dis.needle, 1 EACH MC QAM, #1 12 Refills Prov:SARAH WILSON MD 03/15/16 Cholecalciferol (Vitamin D3) (VITAMIN D3) 1,000 Unit Capsule, 1 CAP PO QDAY, # 90 CAPSULE 4 Refills Prov:SARAH WILSON MD 02/27/16 Reported Medications Lactose-Reduced Food (Ensure Original) 237 Ml Liquid, 1 BOTTLE PO TID 03/06/17 Mineral Oil/Petrolatum,White (Retaine Pm Eye Ointment) 5 Gm Oint...g., 1 LIZ OU HS 02/10/17 Oxygen (OXYGEN) Inha, 2 L INH, L 12/12/14 Magnesium Hydroxide (MILK OF MAGNESIA) 400 Mg/5 Ml Oral.susp, 400 MG PO PRN 10/05/13 Acetaminophen (TYLENOL) 325 Mg Tablet, 325-650 MG PO Q4H Y for PAIN 05/30/13 Discontinued Scripts Furosemide (FUROSEMIDE) 40 Mg Tablet, 40 MG PO DAILY, #60 TAB Prov:SARAH WILSON MD 05/04/17 Allergies: Coded Allergies: sulfamethoxazole (Verified Allergy, Mild, 06/07/17) trimethoprim (Verified Allergy, Mild, 06/07/17) Patient History: FH: breast cancer MOTHER, , Age:80 BROTHER OR SISTER FHx: leukemia FATHER, , Age:80 Hx Smoking: No Smoking Status: Never Smoker Exposure to Second Hand Smoke?: No Caffeine/Cups Per Day: NONE Hx Alcohol Use: No Hx Substance Use Disorder: No Review of Systems Constitutional: No Fever, No Weight Loss, No Weight Gain, No Chills, No Night Sweats Neurological: Weakness, No Syncope, No Confusion Eyes: No Vision Change, No Loss of Vision ENT: No Hearing Loss Cardiovascular: No Chest Pain, No Palpitations Respiratory: Shortness of Breath, Cough, No Wheezing Gastrointestinal: No Nausea, No Vomiting, No Diarrhea, No Hematemesis, No Hematochezia, Melena, No Abdominal Pain Genitourinary: No Dysuria, No Hematuria, No Urinary Incontinence Exam Vital Signs Vital Signs Date Time Temp Pulse Resp B/P (MAP) Pulse Ox O2 Delivery O2 Flow Rate FiO2 06/07/17 15:02 97.8 06/07/17 14:45 59 18 115/100 (105) 92 Nasal Cannula 2.0 General Appearance: Alert, Awake Neuro: Other (generalized weakness/no focal deficits noted) ENT: Oropharynx Clear Neck: No Masses Cardiovascular: Other (Regular with distant tones with soft systolic murmur) Respiratory: Other (decreased breath sounds at both bases few rales no wheezes) Chest: No Tenderness, Other (pacelmaker left upper chest) GI: Abd Soft and Non-Tender : No CVA Tenderness Lymph: No Adenopathy Extremities: Warm, Perfused, Edema Integumentary: Generalized Fragile Skin Medical Decision Making Data Points Result Diagram: 06/07/17 1312 06/07/17 1312 Item Value Date Time Activated Partial Thromboplast Time 29 seconds 06/07/17 1312 Prothromb Time International Ratio 1.02 06/07/17 1312 Prothrombin Time 13.4 seconds 06/07/17 1312 Thyroid Stimulating Hormone (TSH) 2.34 uIU/ml 06/07/17 1312 B-Type Natriuretic Peptide 1440 pg/ml H 06/07/17 1312 Albumin 3.5 g/dl 06/07/17 1312 Total Protein 6.2 gm/dl L 06/07/17 1312 Troponin I 0.734 ng/ml *H 06/07/17 1312 Alkaline Phosphatase 51 U/L 06/07/17 1312 Alanine Aminotransferase (ALT/SGPT) 19 U/L 06/07/17 1312 Aspartate Amino Transf (AST/SGOT) 23 U/L 06/07/17 1312 Total Bilirubin 0.6 mg/dl 06/07/17 1312 Calcium Level 9.3 mg/dl 06/07/17 1312 Urine Color Yellow 06/07/17 1303 Urine Clarity Clear 06/07/17 1303 Urine pH 5.0 pH 06/07/17 1303 Urine Specific [place] 1.010 06/07/17 1303 Urine Protein Negative mg/dL 06/07/17 1303 Urine Glucose (UA) Negative mg/dL 06/07/17 1303 Urine Ketones Trace mg/dL 06/07/17 1303 Urine Blood Negative 06/07/17 1303 Urine Nitrite Positive H 06/07/17 1303 Urine Bilirubin Negative 06/07/17 1303 Urine Urobilinogen Negative mg/dL 06/07/17 1303 Urine Leukocyte Esterase Negative 06/07/17 1303 Urine RBC None /HPF 06/07/17 1303 Urine WBC 1 /HPF 06/07/17 1303 Urine Squamous Epithelial Cells Few /LPF 06/07/17 1303 Urine Bacteria Few /HPF 06/07/17 1303 Urine Hyaline Casts Moderate /LPF H 06/07/17 1303 Urine Mucus None /HPF 06/07/17 1303 Stool Occult Blood Screen Negative 06/01/17 2100 EKG / Imaging Imaging PATIENT NAME: Olya Menchaca : 1925 MR: [id number] V: [id number] EXAM DATE: ORDERING PHYSICIAN: SANTA MONROY TECHNOLOGIST: Location: [facility] - [place] Patient: Olya Menchaca : 1925 Visit/Account:[id number] Date of Sevice: 06/07/2017 Exam type: CHEST PA AND LAT History: Chest Pain Comparison: March 24, 2017. Findings: Bilateral pleural effusions right greater than left appear relatively unchanged. Small amount of by basilar airspace consolidation also appears similar to the prior study. There is prominence of the right vascularity. The cardiac silhouette remains stable. Dual lead cardiac pacemaker again seen. There is marked ectasia the thoracic aorta and marked spondylotic changes of the thoracic spine IMPRESSION: 1. Bilateral pleural effusions right greater than left and bibasilar airspace consolidation appears relatively unchanged when compared the prior study Prominent pulmonary vascularity also again noted may be related to interstitial pulmonary edema. Report Dictated By: Estefany Mane MD at 06/07/2017 1:56 PM Report E-Signed By: Estefany Mane MD at 06/07/2017 1:58 PM [id number] Assessment and Plan Problems: (1) Acute systolic CHF (congestive heart failure) Status: Acute Assessment & Plan: She appears to have acute exacerbation of her chronic systolic heart failure, at least by her symptoms. Most likely due to an acute ischemic event based on her troponin. She has decided she does not want to have any aggressive interventions, such as transfer for cardiology evaluation/heart catheterization. She has also deemed herself DNR/DNI. She would like to have medical/symptom management. Will start on aspirin, continue beta corbin, check serial troponins, consider Lovenox (if no evidence of bleeding). Will also try some diuresis for CHF symptoms/pleural effusions. She stated she did not want to do thoracentesis at this time. (2) Elevated troponin Status: Acute Assessment & Plan: I suspect she may have had an acute ischemic event responsible for her symptoms/CHF exacerbation. Will check serial troponins. Will start an aspirin daily. Continue beta corbin and nitrate. consider Lovenox if no evidence of bleeding. She has decided she does not want any aggressive interventions/treatments, but would like medical management. (3) Type II diabetes mellitus Status: Chronic Assessment & Plan: Continue her Lantus. ADA diet, fingerstick glucoses, use SSI as needed. (4) Hypothyroidism Status: Chronic Assessment & Plan: Continue levothyroxine. TSH is normal at 2.34. Venous Thromboembolism Antithrombotics Is Pt On Any Antithrombotics?: Yes (aspirin) Heart Failure NYHA Class: IV Is Patient on MALLORIE Inhibitor?: No Is Patient on Beta Corbin?: Yes Exam Sepsis Risk: No Definite Risk CHE ROACH MD Jun 07, 2017 15:42
[2017-06-07] MEDS ORDERED: FERR-53 PO (16:10)
[2017-06-07 19:27] VITALS: BP 107/57
[2017-06-07] MEDS: CARBIDOPA/LEVODOPA 25/250 TAB PO SCH (20:57)
[2017-06-07] MEDS: DOCUSATE SODIUM 100 MG CAP PO SCH (20:57)
[2017-06-07] MEDS ORDERED: ATORVASTATIN 10 MG TAB PO SCH (21:00)
[2017-06-07 23:12] VITALS: BP 107/75
[2017-06-07] MEDS: ACETAMINOPHEN 325 MG TAB PO PRN (23:18)
[2017-06-08] MEDS: ACETAMINOPHEN 325 MG TAB PO PRN (01:37)
[2017-06-08 02:18] VITALS: BP 98/52
[2017-06-08 05:55] LABS: PLATELET COUNT, AUTOMATED 128 K/uL (150-450)
[2017-06-08] MEDS ORDERED: LEVOTHYROXINE SOD 0.1 MG TAB PO SCH (06:00)
[2017-06-08 07:02] VITALS: BP 110/63
[2017-06-08] MEDS ORDERED: SPIRONOLACTONE 25 MG TAB PO SCH (09:00)
[2017-06-08] MEDS ORDERED: LISINOPRIL 5 MG TAB PO SCH (09:00)
[2017-06-08] MEDS ORDERED: ASPIRIN 325 MG TAB PO SCH (09:00)
[2017-06-08] MEDS ORDERED: METOPROLOL SUCC XL 50 MG TABCR 50 MG TAB.ER.24H PO SCH (09:00)
[2017-06-08] MEDS ORDERED: ISOSORBIDE MONONITR 30MG TABCR PO SCH (09:00)
[2017-06-08] MEDS ORDERED: INSULIN GLARGINE 100 U/ML 3 ML PEN SUBQ SCH (09:00)
[2017-06-08] MEDS ORDERED: POLYETHYLENE GLYCOL 17 GM PKT PO SCH (09:00)
[2017-06-08] MEDS ORDERED: PANTOPRAZOLE SOD 40 MG TABEC PO SCH (09:00)
[2017-06-08 09:27] VITALS: BP 166/73
[2017-06-08] MEDS: CARBIDOPA/LEVODOPA 25/250 TAB PO SCH (09:28)
[2017-06-08] MEDS: DOCUSATE SODIUM 100 MG CAP PO SCH (09:28)
--- NOTE | 2017-06-08 10:41 | Hospitalist Depart ---
Discharge Summary Reason for Hosp/Final Diag: (1) Acute systolic CHF (congestive heart failure) Status: Acute Hospital Course & Plan: She presented with increased shortness of breath and an elevated BNP. Her echocardiogram from 01/2017 showed an ejection fraction of 29%. Her symptoms improved after a dose of IV Lasix. She is already on maximum medical therapy with metoprolol, lisinopril, Lasix, and spironolactone. (2) Non-ST elevation (NSTEMI) myocardial infarction Status: Resolved Hospital Course & Plan: She did have an elevated troponin, but her EKG showed only a paced rhythm. Her levels have been trending back down. She is already on treatment with aspirin and metoprolol. She did not want to pursue more aggressive treatment. (3) Type II diabetes mellitus Status: Chronic Hospital Course & Plan: She is on chronic treatment with Lantus and sliding scale level #1. (4) Hypothyroidism Status: Chronic Hospital Course & Plan: She is on chronic treatment with Synthroid. Her TSH is within normal limits. Departure Latest Vital Signs Vital Signs 06/08/17 06/08/17 06/08/17 02:18 07:02 09:27 Temp 96.1 Pulse 60 Resp 20 B/P (MAP) 166/73 (104) Pulse Ox 97 O2 Delivery Nasal Cannula O2 Flow Rate 2.0 Weight (Pounds): 189 Weight (Ounces): 0.9 Result Diagram: 06/08/17 0532 06/08/17 0532 Condition: Improved Discharge: Home, Self Care Discharge Code Status: DNR, DNI Discharge Instructions Home Meds Active Scripts Furosemide (FUROSEMIDE) 40 Mg Tablet, 40 MG PO DAILY, #90 TAB 3 Refills Prov:SARAH WILSON MD 06/01/17 Polyethylene Glycol 3350 (MIRALAX) 17 Gm Powd.pack, 17 GM PO DAILY, #30 PKT 11 Refills Prov:SARAH WILSON MD 05/30/17 Blood Sugar Diagnostic (ONE TOUCH ULTRA TEST STRIPS) 1 Each Strip, 1 EACH MC BID , #200 STRIP 3 Refills Prov:SARAH WILSON MD 05/17/17 Isosorbide Mononitrate (ISOSORBIDE MONONITRATE ER) 60 Mg Tab.er.24h, 1 TAB PO DAILY, #90 TAB 3 Refills Prov:SARAH WILSON MD 04/01/17 Spironolactone (SPIRONOLACTONE) 25 Mg Tablet, 1 TAB PO DAILY, #30 TAB 11 Refills Prov:SARAH WILSON MD 03/25/17 Levothyroxine Sodium (LEVOTHYROXINE SODIUM) 100 Mcg Tablet, 1 TAB PO QDAY, #90 TAB 4 Refills Prov:SARAH WILSON MD 03/18/17 Magnesium Hydroxide (MILK OF MAGNESIA) 400 Mg/5 Ml Oral.susp, 30 ML PO QDAY Y for CONSTIPATION, #30 UNITS Prov:JOVON ROACH MD 03/17/17 Insulin Lispro 100 Un/Ml Vial (HUMALOG 100 U/ML VIAL) 100 Unit/1 Ml Vial, 2-10 UNIT SUBQ SS Y for SLIDING SCALE INSULIN, #1 VIAL Prov:JOVON ROACH MD 03/17/17 Insulin Glargine 100 Un/Ml Pen (LANTUS SOLOSTAR PEN) 100 Unit/1 Ml Insuln.pen, 15 UNIT SUBQ DAILY, #1 BOX Prov:JOVON ROACH MD 03/17/17 Docusate Sodium (DOCUSATE SODIUM) 100 Mg Capsule, 100 MG PO BID, #60 CAPSULE Prov:JOVON ROACH MD 03/17/17 Lisinopril (LISINOPRIL) 5 Mg Tablet, 5 MG PO QDAY, #90 TAB 3 Refills Prov:SARAH WILSON MD 03/01/17 Metoprolol Succinate (METOPROLOL SUCCINATE) 100 Mg Tab.er.24h, 1 TAB PO BID, # 180 TAB 1 Refill Prov:SARAH WILSON MD 02/14/17 Atorvastatin Calcium (ATORVASTATIN CALCIUM) 10 Mg Tablet, 1 TAB PO HS, #90 TAB 4 Refills Prov:SARAH WILSON MD 02/14/17 Levodopa/Carbidopa (CARBIDOPA-LEVODOPA 25-250 TAB) 1 Each Tab, 1 TAB PO TID, # 90 TAB 5 Refills Prov:SARAH WILSON MD 02/14/17 Alendronate Sodium (FOSAMAX) 70 Mg Tablet, 70 MG PO QWK, #12 TAB 4 Refills Prov:SARAH WILSON MD 10/15/16 Aspirin (ASPIR 81) 81 Mg Tablet.dr, 81 MG PO QDAY, #90 TAB 4 Refills Prov:SARAH WILSON MD 03/31/16 Lancets (ONE TOUCH LANCETS) 1 Each Each, 1 EA MC 5XD, #100 12 Refills Test Glucose before Fasting each morning, before meals and HS. Length of need:99 months Prov:SARAH WILSON MD 03/15/16 [place], Insulin Disposable (PEN NEEDLES) 1 Each Dis.needle, 1 EACH MC QAM, #1 12 Refills Prov:SARAH WILSON MD 03/15/16 Cholecalciferol (Vitamin D3) (VITAMIN D3) 1,000 Unit Capsule, 1 CAP PO QDAY, # 90 CAPSULE 4 Refills Prov:SARAH WILSON MD 02/27/16 Reported Medications Ferrous Sulfate (FERROUS SULFATE) 325 Mg Tablet, 325 MG PO DAILY 06/07/17 Lactose-Reduced Food (Ensure Original) 237 Ml Liquid, 1 BOTTLE PO TID 03/06/17 Mineral Oil/Petrolatum,White (Retaine Pm Eye Ointment) 5 Gm Oint...g., 1 LZI OU HS 03/03-03/07 in strip Q HS 02/10/17 Oxygen (OXYGEN) Inha, 2 L INH, L 12/12/14 Acetaminophen (TYLENOL) 325 Mg Tablet, 325-650 MG PO Q4H Y for PAIN 05/30/13 Discontinued Reported Medications Magnesium Hydroxide (MILK OF MAGNESIA) 400 Mg/5 Ml Oral.susp, 400 MG PO PRN 10/05/13 Discontinued Scripts Nystatin (NYAMYC) 15 Gm Powder, 0 GM TP BID, #1 BOTTLE Prov:JOVON ROACH MD 03/17/17 Furosemide (FUROSEMIDE) 40 Mg Tablet, 40 MG PO DAILY, #60 TAB Prov:SARAH WILSON MD 05/04/17 Diet: Diabetic Activity: As Tolerated Copies to: SARAH WILSON MD Venous Thromboembolism Antithrombotics Is Pt On Any Antithrombotics?: Yes Heart Failure NYHA Class: IV Is Patient on MALLORIE Inhibitor?: No Is Patient on Beta Corbin?: Yes EMMANUEL DERAS DO Jun 08, 2017 10:41
[2017-06-08 11:00] VITALS: BP 110/65
[2017-06-08 16:15] VITALS: Ht 162.6 cm; Wt 85.8 kg
[2017-06-10] MEDS ORDERED: INFLUENZA VIRUS VAC 0.5 ML SYR IM ONLY ONE (09:00)
== END 2017-06-08 13:50 | disposition home or self-care (01) | DRG 280 ==
LOC: ER 12:29 → MED 14:17
PROVIDERS: ADMIT Internal Medicine; ATTEND Internal Medicine
DX: I21.4 Non-ST elevation (NSTEMI) myocardial infarction (principal); I50.23 Acute on chronic systolic (congestive) heart failure; I13.0 Hypertensive heart and chronic kidney disease with heart failure and stage 1 through stage 4 chronic kidney disease, or unspecified chronic kidney disease; N30.00 Acute cystitis without hematuria; I25.10 Atherosclerotic heart disease of native coronary artery without angina pectoris; Z66 Do not resuscitate; E11.22 Type 2 diabetes mellitus with diabetic chronic kidney disease; N18.3 Chronic kidney disease, stage 3 (moderate); E78.5 Hyperlipidemia, unspecified; E03.9 Hypothyroidism, unspecified; G20 Parkinson's disease; I34.0 Nonrheumatic mitral (valve) insufficiency; I48.0 Paroxysmal atrial fibrillation; D69.6 Thrombocytopenia, unspecified; N64.89 Other specified disorders of breast; Z86.711 Personal history of pulmonary embolism; Z95.0 Presence of cardiac pacemaker; Z88.2 Allergy status to sulfonamides; Z88.8 Allergy status to other drugs, medicaments and biological substances; Z79.4 Long term (current) use of insulin; Z90.49 Acquired absence of other specified parts of digestive tract; Z90.710 Acquired absence of both cervix and uterus
CPT/HCPCS: 36415; 36416; 71046; 81001; 82040; 82247; 82274; 82310; 82374; 82435; 82565; 82947; 82948; 83880; 84075; 84132; 84155; 84295; 84443; 84450; 84460; 84484; 84520; 85025; 85610; 85730; 87077; 87088; 87186; 93005; 96374; 96375; 99285; J0696; J1815; J1940

== ENCOUNTER → 2017-06-07 | Outpatient (CLI) | payer MEDICARE, MEDICAID ==
[2017-03-05 10:53] VITALS: BMI 31.3
[~2017-06-07] MED LIST changes: +FERR-53 PO
== END ==
LOC: ZZSPRING 01:26
PROVIDERS: ATTEND Emergency Medicine
DX: R06.02 Shortness of breath (principal); I50.22 Chronic systolic (congestive) heart failure; E11.9 Type 2 diabetes mellitus without complications; N18.3 Chronic kidney disease, stage 3 (moderate)
CPT/HCPCS: 36415; 82310; 82374; 82435; 82565; 82947; 83880; 84132; 84295; 84520

== ENCOUNTER → 2017-06-07 | Outpatient (CLI) | payer MEDICARE, MEDICAID ==
[~2017-06-07] MED LIST changes: +MORP100S32 PO
[2017-06-08 16:15] VITALS: BMI 32.4
== END ==
LOC: AMB 12:12
PROVIDERS: ATTEND Nurse Practitioner
DX: R53.81 Other malaise (principal)
CPT/HCPCS: A0425; A0429

== ENCOUNTER → 2017-06-14 | Outpatient (CLI) | payer MEDICARE, MEDICAID ==
[2017-06-08 16:15] VITALS: BMI 32.4
[~2017-06-14] MED LIST changes: +FERR-53 PO; +MORP100S32 PO
== END ==
LOC: ZZSPRING 01:45
PROVIDERS: ATTEND Emergency Medicine
DX: I50.22 Chronic systolic (congestive) heart failure (principal)
CPT/HCPCS: 36415; 82310; 82374; 82435; 82565; 82947; 84132; 84295; 84520

== ENCOUNTER → 2017-06-21 | Outpatient (CLI) | payer MEDICARE, MEDICAID ==
[2017-06-08 16:15] VITALS: BMI 32.4
== END ==
LOC: ZZSPRING 00:17
PROVIDERS: ATTEND Internal Medicine Cardiovascular Disease
DX: I48.2 Chronic atrial fibrillation (principal)
CPT/HCPCS: 36415; 82310; 82374; 82435; 82565; 82947; 83735; 84132; 84295; 84520